=== PATIENT | female | born 1985 | race African-American/Black ===

== ENCOUNTER 2016-06-30 10:24 | Observation (INO) | payer OTHER ==
[2016-06-30 10:48] VITALS: BMI 29.9
[2016-06-30] MEDS ORDERED: FAMOTIDINE 20 MG/50 ML IVPB 50 ML IVPB ONE ×3 (10:49→19:55)
[2016-06-30] MEDS ORDERED: ACETAMINOPHEN 1000 MG/100 ML VIAL (NON FORMULARY) IVPB ONE (10:50)
[2016-06-30] MEDS ORDERED: ONDANSETRON 4 MG/2 ML VIAL IVPB ONE (10:50)
--- NOTE | 2016-06-30 10:57 | PDOC ---
History of Present Illness - General Chief Complaint: Pain Stated Complaint: ABD PAIN Time Seen by Provider: 06/30/16 10:30 - History of Present Illness Initial Comments: 06/30/16 10:52 31-year-old female with a past medical history of PCOS, and a lap band done in 2011 She also has a history of 2 prior C-sections, and kidney stones LMP 06/12 Patient is complaining of one month of intermittent it mid abdominal pain She states that her lap band was last loosened 4 months ago She describes the abdominal pain is intermittent, and associated with nausea and vomiting She is also having a lot of reflux and burning up into her chest and throat, and sometimes spits up some vomitus and some brown material She states in the past week she's been vomiting frequently after eating She states that liquids seem to be okay, but solids are more problematic She states she is having normal brown soft stool She denies any fevers or chills She denies any urinary symptoms She denies any vaginal discharge She states the pain got worse and she's been vomiting most of the day today, prompting her to come to the emergency department Past History - Past Medical History Allergies/Adverse Reactions: Allergies Allergy/AdvReac Type Severity Reaction Status Date / Time No Known Drug Allergies Allergy Verified 06/30/16 10:26 Home Medications: Ambulatory Orders Omeprazole 20 mg PO DAILY #30 capsule. 06/30/16 Oxycodone HCl [Oxaydo] 5 mg PO QID PRN #12 tablet.orl MDD 4 tabs 06/30/16 Asthma: No Cancer: No Cardiac Disorders: No Diabetes: No HTN: No Kidney Stones: Yes Seizures: No Thyroid Disease: No - Surgical History Abdominal Surgery: Yes (LAP BAND 2011, TIGHTENING 09/08/14) - Reproductive History Is Patient Now?: No - Psycho/Social/Smoking Cessation Hx Anxiety: No Suicidal Ideation: No Smoking History: Never smoked Have you smoked in the past 12 months: No Hx Alcohol Use: Yes (occasional) Drug/Substance Use Hx: No Substance Use Type: None Hx Substance Use Treatment: No *Physical Exam - Vital Signs Last Vital Signs Temp Pulse Resp BP Pulse Ox 99 F 91 H 18 112/80 100 06/30/16 10:25 06/30/16 10:25 06/30/16 10:25 06/30/16 10:25 06/30/16 10:25 - Physical Exam Comments: 06/30/16 10:54 Physical exam Last Vital Signs Temp Pulse Resp BP Pulse Ox 99 F 91 H 18 112/80 100 06/30/16 10:25 06/30/16 10:25 06/30/16 10:25 06/30/16 10:25 06/30/16 10:25 GENERAL: The patient is awake, alert, and fully oriented, and in no apparent distress. HEAD: Normal with no signs of trauma. EYES: sclera anicteric, conjunctiva are normal. ENT: Mucous membranes slightly dry NECK: Normal range of motion, supple . LUNGS: Breath sounds equal, clear to auscultation bilaterally. No wheezes, and no crackles. HEART: Regular rate and rhythm, normal S1 and S2 without murmur, rub or gallop. ABDOMEN: The abdomen is soft, with hypoactive but present bowel sounds There is mild periumbilical and upper midepigastric tenderness to palpation without guarding or rebound There is no lower abdominal tenderness or CVA tenderness EXTREMITIES: Normal range of motion, no edema. No clubbing or cyanosis. No cords, erythema, or tenderness. NEUROLOGICAL: Cranial nerves II through XII grossly intact. Normal speech, normal gait. PSYCH: Normal mood, normal affect. SKIN: Warm, Dry, normal turgor, no rashes or lesions noted. ED Treatment Course - LABORATORY CBC & Chemistry Diagram: 06/30/16 11:05 06/30/16 11:45 Medical Decision Making - Medical Decision Making 06/30/16 10:56 Concerned about a gastric ulcer above the band, or any issue with the band Pt is mildly dehydrated Will start with hydration, nausea control, pain control, and an H2 cuauhtemoc Case d/w Dr Mason concerned about band dysfunction or above Will place in observation - Dr Mason will re-evaluate and do barium swallow to check band position/function, and stomach 06/30/16 12:40 Laboratory Results - last 24 hr 06/30/16 06/30/16 06/30/16 11:05 11:05 11:05 WBC 5.0 RBC 4.90 Hgb 12.8 Hct 39.7 MCV 81.1 MCHC 32.2 RDW 13.1 Plt Count 349 MPV 8.8 Sodium Cancelled Potassium Cancelled Chloride Cancelled Carbon Dioxide Cancelled Anion Gap Cancelled BUN Cancelled Creatinine Cancelled Creat Clearance w eGFR Cancelled Random Glucose Cancelled Calcium Cancelled Magnesium Cancelled Total Bilirubin Cancelled AST Cancelled ALT Cancelled Alkaline Phosphatase Cancelled Total Protein Cancelled Albumin Cancelled Lipase Cancelled Urine Color Yellow Urine Appearance Clear Urine pH 7.5 Ur Specific [place] 1.020 Urine Protein Negative Urine Glucose (UA) Negative Urine Ketones Negative Urine Blood Trace H Urine Nitrite Negative Urine Bilirubin Negative Urine Urobilinogen 0.2 e.u/dl Ur Leukocyte Esterase Negative Urine HCG, Qual 06/30/16 06/30/16 11:05 11:45 WBC RBC Hgb Hct MCV MCHC RDW Plt Count MPV Sodium 137 Potassium 4.2 Chloride 108 H Carbon Dioxide 27 D Anion Gap 2 L BUN 10 Creatinine 0.6 Creat Clearance w eGFR > 60 Random Glucose 94 D Calcium 8.7 Magnesium 1.9 Total Bilirubin 0.8 D AST 11 D ALT < 9 L D Alkaline Phosphatase 53 Total Protein 6.3 L Albumin 3.6 Lipase 26 Urine Color Urine Appearance Urine pH Ur Specific [place] Urine Protein Urine Glucose (UA) Urine Ketones Urine Blood Urine Nitrite Urine Bilirubin Urine Urobilinogen Ur Leukocyte Esterase Urine HCG, Qual Negative admit/observation with Dr Mason for further evaluation *DC/Admit/Observation/Transfer Diagnosis at time of Disposition: Nausea & vomiting, GERD (gastroesophageal reflux disease), Dehydration, LAP- BAND surgery status - Discharge Dispostion Condition at time of disposition: Good Admit: Yes - Prescriptions
[2016-06-30] MEDS ORDERED: SODIUM CHLORIDE 1,000 ML IV SCH (11:00)
[2016-06-30] MEDS ORDERED: ONDANSETRON 4 MG/2 ML VIAL ONE (11:01)
[2016-06-30] MEDS ORDERED: ACETAMINOPHEN INJECTION 100 ML IVPB ONE (11:01)
[2016-06-30 11:24] LABS: MCH 26.1 pg (25.7-33.7); MCHC 32.2 g/dl (32.0-36.0); MEAN CELL VOLUME 81.1 fl (80-96); MEAN PLT VOLUME 8.8 fl (7.5-11.1); PLATELET COUNT 349 K/MM3 (134-434); RDW 13.1 % (11.6-15.6)
[2016-06-30] MEDS ORDERED: HYDROmorphone HCL CARPU-JECT 2 MG/1 ML DISP.SYRIN ONE (11:30)
[2016-06-30] MEDS ORDERED: HYDROmorphone HCL CARPU-JECT 1 MG/1 ML DISP.SYRIN IVPUSH ONE (11:32)
[2016-06-30 11:35] LABS: PH,URINE 7.5 (4.5-8); URINE APPEARANCE Clear; URINE BILIRUBIN Negative (NEGATIVE); URINE GLUCOSE (UA) Negative (NEGATIVE); URINE KETONE Negative (NEGATIVE); URINE LEUK ESTERASE Negative (NEGATIVE); URINE NITRITE Negative (NEGATIVE); URINE PROTEIN Negative (NEGATIVE); URINE UROBILINOGEN 0.2 E.U/dl (0.2-1.0)
[2016-06-30 12:23] LABS: ALBUMIN 3.6 g/dl (3.5-5.0); ALK PHOS 53 U/L (32-92); ANION GAP 2 (8-16); BILIRUBIN,TOTAL 0.8 mg/dl (0.2-1.0); CALCIUM 8.7 mg/dl (8.4-10.2); CO2 27 mmol/L (22-28); CREATININE 0.6 mg/dl (0.6-1.3); GLUCOSE,RANDOM 94 mg/dl (74-106); MAGNESIUM 1.9 mg/dL (1.8-2.4); SGOT/AST 11 U/L (10-42); TOT PROT 6.3 g/dl (6.4-8.3)
[2016-06-30 12:29] LABS: SGPT/ALT < 9 U/L (10-40)
[2016-06-30 12:38] LABS: URINE BLOOD TRACE (NEGATIVE); URINE COLOR YELLOW
[2016-06-30 14:16] VITALS: BP 117/57; PULSE 66; TEMP 98.5
[2016-06-30 15:39] LABS: URINE BACTERIA 1+ /hpf (NEGATIVE); URINE WBC 0-3 (3-5)
== END 2016-06-30 22:24 | disposition home or self-care (01) ==
LOC: FER 10:24 → FM/S 13:23
PROVIDERS: ADMIT Surgery; ATTEND Surgery
DX: R11.2 Nausea with vomiting, unspecified (principal); K21.9 Gastro-esophageal reflux disease without esophagitis; E86.0 Dehydration; Z98.84 Bariatric surgery status
CPT/HCPCS: 36415; 74241-TC; 80053; 81003; 81015; 83690; 83735; 84703; 85027; 99285-25; G0378

== ENCOUNTER 2017-01-22 06:26 | Emergency (ER) | payer OTHER ==
[2017-01-22 07:05] VITALS: BMI 32.9
[2017-01-22] MEDS ORDERED: SODIUM CHLORIDE 1,000 ML IV STA ×2 (07:22→11:52)
[2017-01-22] MEDS ORDERED: KETOROLAC TROMETHAMINE 30 MG/1 ML VIAL IVPUSH ONE (07:22)
[2017-01-22] MEDS ORDERED: ONDANSETRON 4 MG/2 ML VIAL IVPUSH ONE (07:31)
--- NOTE | 2017-01-22 07:31 | PDOC ---
History of Present Illness - General History Source: Patient - History of Present Illness Timing/Duration: reports: getting worse Quality: reports: moderate Abdominal Pain Onset Location: reports: flank Pain Radiation: reports: groin <Urvashi Valencia - Last Filed: 01/22/17 15:00> <Anisha Sheets - Last Filed: 01/22/17 16:34> - General Chief Complaint: Pain, Acute Stated Complaint: SIDE/BACK PAIN Time Seen by Provider: 01/22/17 07:14 Past History - Past Medical History Asthma: No Cancer: No Cardiac Disorders: No Diabetes: No HTN: No Kidney Stones: Yes Seizures: No Thyroid Disease: No - Surgical History Abdominal Surgery: Yes (LAP BAND 2011, TIGHTENING 09/08/14) - Suicide/Smoking/Psychosocial Hx Smoking History: Never smoked Have you smoked in the past 12 months: No Information on smoking cessation initiated: No Hx Alcohol Use: No Drug/Substance Use Hx: No Substance Use Type: None Hx Substance Use Treatment: No <Urvashi Valencia - Last Filed: 01/22/17 15:00> <Anisha Sheets - Last Filed: 01/22/17 16:34> - Past Medical History Allergies/Adverse Reactions: Allergies Allergy/AdvReac Type Severity Reaction Status Date / Time No Known Drug Allergies Allergy Verified 01/22/17 06:55 Home Medications: Ambulatory Orders Oxycodone HCl/Acetaminophen [Percocet 5-325 mg Tablet] 1 tab PO Q4H #15 tablet MDD 6 tabs 01/22/17 Review of Systems - Review of Systems Constitutional: No: Chills, Fever ABD/GI: Yes: Nausea. No: Vomiting : Yes: Flank Pain. No: Dysuria, Hematuria <Urvashi Valencia - Last Filed: 01/22/17 15:00> *Physical Exam - Vital Signs Last Vital Signs Temp Pulse Resp BP Pulse Ox 98.5 F 59 L 14 117/53 100 01/22/17 06:55 01/22/17 06:55 01/22/17 06:55 01/22/17 06:55 01/22/17 06:55 - Physical Exam General Appearance: Yes: Appropriately Dressed, Mild Distress HEENT: positive: Normal Voice Neck: positive: Supple Respiratory/Chest: negative: Respiratory Distress Gastrointestinal/Abdominal: positive: Tender, Soft Musculoskeletal: negative: CVA Tenderness Extremity: positive: Normal Inspection Integumentary: positive: Dry, Warm Neurologic: positive: Fully Oriented, Alert, Normal Mood/Affect <Miesha ValenciaFatmataKhalida - Last Filed: 01/22/17 15:00> - Vital Signs Last Vital Signs Temp Pulse Resp BP Pulse Ox 98.6 F 78 18 122/77 98 01/22/17 15:07 01/22/17 15:07 01/22/17 15:07 01/22/17 15:07 01/22/17 15:07 <Anisha Sheets - Last Filed: 01/22/17 16:34> ED Treatment Course - LABORATORY CBC & Chemistry Diagram: 01/22/17 07:28 01/22/17 07:28 <Miesha ValenciaKrystle - Last Filed: 01/22/17 15:00> - LABORATORY CBC & Chemistry Diagram: 01/22/17 07:28 01/22/17 07:28 - ADDITIONAL ORDERS Additional order review: Laboratory Results 01/22/17 01/22/17 01/22/17 12:00 08:35 07:28 Sodium 143 Potassium 4.4 Chloride 107 Carbon Dioxide 31 D Anion Gap 5 L BUN 10 D Creatinine 0.6 Creat Clearance w eGFR > 60 Random Glucose 88 Calcium 9.1 Total Bilirubin 0.6 AST 20 ALT 19 Alkaline Phosphatase 77 Total Protein 6.8 Albumin 3.6 Serum , Qual Negative Urine Color Yellow Urine Appearance Slcloudy Urine pH 6.0 Urine Protein Negative Urine Glucose (UA) Negative Urine Ketones Trace H Urine Blood Negative Urine Nitrite Negative Urine Bilirubin Negative Urine Urobilinogen Negative 01/22/17 07:28 RBC 4.76 D MCV 81.6 MCHC 32.0 RDW 13.7 MPV 8.0 Neutrophils % 47.8 D Lymphocytes % 41.6 H D Monocytes % 7.9 Eosinophils % 1.8 Basophils % 0.9 - Medications Given in the ED: ED Medications Discontinued Medications Generic Name Dose Route Start Last Admin Trade Name Freq PRN Reason Stop Dose Admin Hydromorphone HCl 1 mg 01/22/17 13:43 01/22/17 14:14 Dilaudid Injection - IVPB 01/22/17 13:44 Not Given ONCE ONE Sodium Chloride 1,000 mls @ 1,000 mls/hr 01/22/17 07:22 01/22/17 07:40 Normal Saline - IV 01/22/17 08:21 1,000 mls/hr ASDIR STA Administration Ceftriaxone Sodium 1 gm/ 50 mls @ 100 mls/hr 01/22/17 11:52 01/22/17 12:14 Dextrose IVPB 01/22/17 12:21 100 mls/hr ONCE ONE Administration Sodium Chloride 1,000 mls @ 1,000 mls/hr 01/22/17 11:52 01/22/17 12:00 Normal Saline - IV 01/22/17 12:51 1,000 mls/hr ASDIR STA Administration Ketorolac Tromethamine 30 mg 01/22/17 07:22 01/22/17 07:40 Toradol Injection - IVPUSH 01/22/17 07:23 30 mg ONCE ONE Administration Metoclopramide HCl 10 mg 01/22/17 11:52 01/22/17 12:00 Reglan Injection - IVPB 01/22/17 11:53 10 mg ONCE ONE Administration Morphine Sulfate 4 mg 01/22/17 08:04 01/22/17 08:25 Morphine Injection - IVPUSH 01/22/17 08:05 4 mg ONCE ONE Administration Morphine Sulfate 4 mg 01/22/17 11:56 01/22/17 12:00 Morphine Injection - IVPUSH 01/22/17 11:57 4 mg ONCE ONE Administration Ondansetron HCl 4 mg 01/22/17 07:31 01/22/17 07:40 Zofran Injection IVPUSH 01/22/17 07:32 4 mg ONCE ONE Administration Phenazopyridine HCl 200 mg 01/22/17 11:21 01/22/17 11:20 Pyridium - PO 01/22/17 11:22 200 mg ONCE ONE Administration Tramadol HCl 50 mg 01/22/17 13:47 01/22/17 13:58 Ultram - PO 01/22/17 13:48 50 mg ONCE ONE Administration <Anisha Sheets - Last Filed: 01/22/17 16:34> Medical Decision Making - Medical Decision Making 01/22/17 07:26 31-year-old female status post gastric banding remotely, renal stones, here with worsening right flank pain x several weeks, associated with nausea now. No vomiting, dysuria, hematuria, vaginal discharge, fever or chills. Patient states she was seen by Dr. Nikos York for pain [address] days ago and had [address] which shows bilateral renal stones. Of note, CT reviewed by myself now and shows bilateral non-obstructing kidney stones measuring up to 3 mm w/ no ureteral or bladder stone. Pt states she is scheduled for ? lithotripsy end of the month. Patient states she also had a ? cystoscopy performed and told she had a " bladder infection" and given prescription for antibiotics but has not started meds as of yet. See exam Renal colic CT 2 days ago w/ b/l non-obs renal stones, no stone seen in ureter Dx w/ UTI but hasn't taken abx yet (no recent ua/cx on records here) Stable in ED but haven mildly uncomfortable w/ minimal ttp to R flank without overt CVAT -toradol -zofran -IVF -CT vs US in ED -will discuss dispo w/ Dr York, pt's 01/22/17 09:50 Case d/w Dr York, states if CT shows any hydro, admit pt, otherwise pt can f/ u with tomorrow 01/22/17 09:51 01/22/17 11:21 CT today unchanged and read as bilateral non-obstructing renal stones with no stones in ureter. Patient continues of severe flank pain despite receiving dose of toradol and c morphine. UA still pending, rule out UTI and possible pyelo. Pt denies any overt dysuria/hematuria 01/22/17 11:52 ED nurse reports that pt is actively vomiting in ED. Reglan and additional IV fluid in progress. UA pending. Will order one dose of ceftriaxone in the meantime 01/22/17 11:56 01/22/17 13:41 Ua w/ no nit, LE to be resulted. Pt continues to c/o pain though at this point unclear as to why degree of pain given small non-obstructing stones on CT with no ureteral stone visualized. Given patient's discomfort and difficulty controlling pain in ED, will admit. Will contact admitting team and admit at this time. 01/22/17 13:54 Pt refusing admission at this time. Will attempt to control pain w/ po meds and reassess. If able to discharge, will instruct to fill rx for abx given by Dr York and to f/u with MD tomorrow as was discussed w/ 01/22/17 13:57 01/22/17 14:46 Pt reports some improvement in pain, but states it is still a 6 out of a 10. Patient offered admission but insists that she would prefer to go home. Will dc with Percocet and instruct to fill prescription for antibiotics given to her by Dr. York. Patient to follow up with [facility] in the a.m. Reasons to return discussed with patient 01/22/17 14:50 <Urvashi Valencia - Last Filed: 01/22/17 15:00> *DC/Admit/Observation/Transfer <Urvasih Valencia - Last Filed: 01/22/17 15:00> - Attestations Physician Attestion: I reviewed the case with the mid-level practitioner and agree with the mid- level practitioner's assessment, diagnosis and disposition. <Anisha Sheets - Last Filed: 01/22/17 16:34> Diagnosis at time of Disposition: Flank pain, Renal stones - Discharge Dispostion Disposition: HOME Condition at time of disposition: Improved - Prescriptions Prescriptions: Oxycodone HCl/Acetaminophen [Percocet 5-325 mg Tablet] 1 tab PO Q4H #15 tablet MDD 6 tabs - Patient Instructions Printed Discharge Instructions: DI for Kidney Stones Additional Instructions: Take antibiotics and pain medication as prescribed and follow-up with Dr. York tomorrow
[2017-01-22] MEDS ORDERED: ONDANSETRON 4 MG/2 ML VIAL ONE (07:32)
[2017-01-22] MEDS ORDERED: KETOROLAC TROMETHAMINE 30 MG/1 ML VIAL ONE (07:32)
[2017-01-22 07:48] LABS: BASOPHIL 0.9 % (0-2.0); EOSINOPHIL 1.8 % (0-4.5); MCH 26.1 pg (25.7-33.7); MEAN CELL VOLUME 81.6 fl (80-96); NEUTROPHILS 47.8 % (42.8-82.8); PLATELET COUNT 237 K/MM3 (134-434); RDW 13.7 % (11.6-15.6); WHITE BLOOD COUNT 4.3 K/mm3 (4.0-10.0)
[2017-01-22] MEDS ORDERED: morphine CARPU-JECT 4 MG/1 ML DISP.SYRIN IVPUSH ONE ×2 (08:04→11:56)
[2017-01-22] MEDS ORDERED: morphine CARPU-JECT 10 MG/1 ML DISP.SYRIN ONE (08:21)
[2017-01-22 08:31] LABS: ALBUMIN 3.6 g/dl (3.4-5.0); ANION GAP 5 (8-16); BILIRUBIN,TOTAL 0.6 mg/dL (0.2-1.0); CALCIUM 9.1 mg/dL (8.5-10.1); CO2 31 mmol/L (21-32); CREATININE 0.6 mg/dL (0.55-1.02); GLUCOSE,RANDOM 88 mg/dL (74-106); SGOT/AST 20 U/L (15-37); SGPT/ALT 19 U/L (12-78)
[2017-01-22 08:32] LABS: ALK PHOS 77 U/L (45-117); TOT PROT 6.8 g/dl (6.4-8.2)
[2017-01-22] MEDS ORDERED: PHENAZOPYRIDINE HCL 100 MG TABLET (FP) ONE (11:21)
[2017-01-22] MEDS ORDERED: PHENAZOPYRIDINE HCL 100 MG TABLET (FP) PO ONE (11:21)
[2017-01-22] MEDS ORDERED: CEFTRIAXONE 1 GM in DEXTROSE 5%-WATER - 50 ML IVPB ONE (11:52)
[2017-01-22] MEDS ORDERED: METOCLOPRAMIDE HCL INJECTION 10 MG/2 ML VIAL IVPB ONE (11:52)
[2017-01-22] MEDS ORDERED: METOCLOPRAMIDE HCL INJECTION 10 MG/2 ML VIAL ONE (12:02)
[2017-01-22] MEDS ORDERED: morphine CARPU-JECT 2 MG/1 ML DISP.SYRIN ONE (12:02)
[2017-01-22] MEDS ORDERED: CEFTRIAXONE 50 ML ONE (12:02)
[2017-01-22 12:13] LABS: URINE APPEARANCE SLCLOUDY; URINE BILIRUBIN NEGATIVE (NEGATIVE); URINE BLOOD NEGATIVE (NEGATIVE); URINE COLOR YELLOW; URINE GLUCOSE (UA) NEGATIVE (NEGATIVE); URINE KETONE TRACE (NEGATIVE); URINE NITRITE NEGATIVE (NEGATIVE); URINE PROTEIN NEGATIVE (NEGATIVE); URINE UROBILINOGEN NEGATIVE mg/dL (0.2-1.0)
[2017-01-22] MEDS ORDERED: HYDROmorphone HCL CARPU-JECT 2 MG/1 ML DISP.SYRIN IVPB ONE (13:43)
[2017-01-22] MEDS ORDERED: traMADol HCL 50 MG TABLET PO ONE (13:47)
[2017-01-22] MEDS ORDERED: traMADol HCL 50 MG TABLET ONE (13:56)
[2017-01-22 15:07] VITALS: BP 122/77; PULSE 78; TEMP 98.6
[2017-01-22 16:42] LABS: URINE LEUK ESTERASE Negative (NEGATIVE)
== END 2017-01-22 15:05 | disposition home or self-care (01) ==
LOC: JER 06:26
PROC: 3E03329 Introduction of Other Anti-infective into Peripheral Vein, Percutaneous Approach (ICD-10-PCS; principal; 2017-01-22)
PROC: 3E033NZ Introduction of Analgesics, Hypnotics, Sedatives into Peripheral Vein, Percutaneous Approach (ICD-10-PCS; 2017-01-22)
PROC: 3E0333Z Introduction of Anti-inflammatory into Peripheral Vein, Percutaneous Approach (ICD-10-PCS; 2017-01-22)
PROC: 3E033GC Introduction of Other Therapeutic Substance into Peripheral Vein, Percutaneous Approach (ICD-10-PCS; 2017-01-22)
PROC: 3E0337Z Introduction of Electrolytic and Water Balance Substance into Peripheral Vein, Percutaneous Approach (ICD-10-PCS; 2017-01-22)
DX: N20.0 Calculus of kidney (principal); R10.30 Lower abdominal pain, unspecified; Z98.84 Bariatric surgery status
CPT/HCPCS: 36415; 74176-TC; 80053; 81003; 84703; 85025; 87086; 99281-25

== ENCOUNTER 2017-03-26 19:14 | Observation (INO) | payer OTHER ==
--- NOTE | 2017-03-26 19:33 | PDOC ---
History of Present Illness - History of Present Illness Initial Comments: 03/26/17 20:16 Patient is a 31 year old female with a significant past medical history of s/p lap band in 2010 who presents to the ED with complaints of chest pain that began 2 days ago. Patient reports experiencing bloody vomit 2 days ago, which she states prompted her to see surgeon for evaluation on her lap band. Patient states the lap band was loosened which relieved the burning chest pain and any nausea/vomiting. She reports coming into ED for further evaluation after waking up this morning with returned intense burning chest pain. Patient reports taking pepsin and dexilant with no relief. She reports her appetite is unchanging. Denies SOB. Denies fever, chills. Denies contact with sick individuals, out of state travel. Denies trauma to affected area. Denies any other symptoms Allergies: None Social history: Current smoker (1 cigarette per day). Social drinker. No illicit drugs. Surgical history: Lap Band surgery 2011, 2 prior C-sections. PMD: None Other: Dr. Mason <Guy Choi - Last Filed: 03/26/17 21:06> - General History Source: Patient Exam Limitations: No Limitations - History of Present Illness Initial Comments: A portion of this note was documented by scribe services under my direction. I have reviewed the details of the note, within reason, and agree with the documentation. The case summary and management plan written by me. Medical decision making: This is a 31-year-old female who is status post lap band who comes in complaining of burning epigastric/substernal chest pain. Patient had her lap band loosened 2 days ago. But still has persistent pain. History is concerning for slipped lap band. Will initiate workup including CBC, lipase, metabolic profile. CAT scan abdomen and pelvis to rule out slipped lap band and other pathology. Will hydrate patient with IV fluid and control her pain with IV medication Pepcid, Zofran, morphine 21:30 reevaluation patient complaining that her pain has returned will re- medicate with morphine and continue IV fluids. Patient's lab work reviewed and is unremarkable. Patient CT is pending. 23:00 CT shows a lap band that appears to be unchanged in position from prior studies. However in addition to that there is a 5 by 3.7 X 2.3 retroperitoneum and nail structure of unknown origin. Assessment and plan: This is a morbidly obese 31-year-old female who is approximately 6 years status post lap band procedure. Patient had her lap and recently loosened and continued to have persistent pain. Patient had a workup and evaluation to rule out slipped lap band which revealed a lap band that was most likely not slipped however there is an additional finding of some sort of structure in the retroperitoneal area that needs to be evaluated. Patient will be admitted to the hospitalist services and Dr. Mason will consult. Discussed case with Dr. Mason. <Woodrow Queen I - Last Filed: 03/26/17 23:51> - General Chief Complaint: Pain, Acute Stated Complaint: abd, epigastric pain Time Seen by Provider: 03/26/17 19:17 Past History <Guy Choi - Last Filed: 03/26/17 21:06> - Past Medical History Asthma: No Cancer: No Cardiac Disorders: No COPD: No Diabetes: No HTN: No Kidney Stones: Yes Seizures: No Thyroid Disease: No - Surgical History Abdominal Surgery: Yes (LAP BAND 2011, TIGHTENING 09/08/14) - Suicide/Smoking/Psychosocial Hx Smoking History: Current some day smoker Have you smoked in the past 12 months: No Number of Cigarettes Smoked Daily: 1 Information on smoking cessation initiated: Yes Hx Alcohol Use: Yes Drug/Substance Use Hx: No Substance Use Type: Alcohol Hx Substance Use Treatment: No <Woodrow Queen I - Last Filed: 03/26/17 23:51> - Past Medical History Allergies/Adverse Reactions: Allergies Allergy/AdvReac Type Severity Reaction Status Date / Time No Known Drug Allergies Allergy Verified 03/26/17 19:15 Home Medications: Ambulatory Orders NK [No Known Home Medication] 03/26/17 Review of Systems - Review of Systems Able to Perform ROS?: Yes Comments:: 03/26/17 20:16 General: No fevers or chills, no weakness, no weight loss HEENT: No change in vision. No sore throat, No ear pain CardioVascular: +Chest pain. No shortness of breath Respiratory:No cough, or wheezing. Gastrointestinal: +Hematemesis. No nausea, diarrhea or constipation, No rectal bleeding Genitourinary: No dysuria, hematuria, or frequency Musculoskeletal: No joint or muscle pain or swelling Neurologic: No headache, vertigo, dizziness or loss of consciousness Psychiatric: nor depression Skin: No rashes or easy bruising Endocrine: no increased thirst or abnormal weight change Allergic: no skin or latex allergy All other systems reviewed and normal All Other Systems: Reviewed and Negative <Guy Choi - Last Filed: 03/26/17 21:06> *Physical Exam - Vital Signs Last Vital Signs Temp Pulse Resp BP Pulse Ox 99.4 F 93 H 17 124/77 100 03/26/17 19:15 03/26/17 19:15 03/26/17 19:15 03/26/17 19:15 03/26/17 19:15 - Physical Exam Comments: 03/26/17 20:16 General: +Mild distress. Well-nourished well-developed individual. HEENT: Throat: Normal, tonsils normal, no erythema or exudate Neck: Supple, no meningeal signs, no lymphadenopathy Eyes::Pupils equal reactive and round, extraocular motion intact Chest: Nontender to palpation Cardiac: S1-S2 normal, regular rate and rhythm, no murmurs rubs or gallops Respiratory: Lungs clear to auscultation bilateral Abdomen: Soft, nondistended, normal bowel sounds, nontender to palpation diffusely Rectal: Non tender. Brown stool. Extremities: Warm, dry, no cyanosis, clubbing, or edema Skin: No rashes Neuro: Alert and oriented x3, nonfocal exam, grossly intact, normal gait Psych: Normal mood and affect <Guy Choi - Last Filed: 03/26/17 21:06> - Vital Signs Last Vital Signs Temp Pulse Resp BP Pulse Ox 99.4 F 93 H 17 124/77 100 03/26/17 19:15 03/26/17 19:15 03/26/17 19:15 03/26/17 19:15 03/26/17 19:15 <Woodrow Queen I - Last Filed: 03/26/17 23:51> Heart Score/ECG Review - ECG Intrepretation Comment:: 03/26/17 21:06 Normal sinus rhythm with sinus arrhythmia Normal ECG <Guy Choi - Last Filed: 03/26/17 21:06> ED Treatment Course - LABORATORY CBC & Chemistry Diagram: 03/26/17 20:10 03/26/17 20:10 <Guy Choi - Last Filed: 03/26/17 21:06> - LABORATORY CBC & Chemistry Diagram: 03/26/17 20:10 03/26/17 20:10 <Woodrow Queen I - Last Filed: 03/26/17 23:51> *DC/Admit/Observation/Transfer - Attestations Scribe Attestion: 03/26/17 20:17 Documentation prepared by Guy Choi, acting as medical affairs leader for Woodrow Queen MD/DO. <Guy Choi - Last Filed: 03/26/17 21:06> - Discharge Dispostion Admit: Yes <Woodrow Queen I - Last Filed: 03/26/17 23:51> Diagnosis at time of Disposition: Substernal chest pain Abdominal pain Qualifiers: Abdominal location: generalized Qualified Code(s): R10.84 - Generalized abdominal pain - Discharge Dispostion Disposition: HOME Condition at time of disposition: Stable
[2017-03-26] MEDS ORDERED: SODIUM CHLORIDE 1,000 ML IV ONE (19:44)
[2017-03-26] MEDS ORDERED: FAMOTIDINE 20 MG/50 ML IVPB 20 MG/50 ML MG IVPB ONE (19:55)
[2017-03-26] MEDS ORDERED: HYOSCYAMINE SULFATE 0.125 MG *ODT PO ONE (20:03)
[2017-03-26] MEDS ORDERED: FAMOTIDINE IV 20 MG/12 ML VIAL IVPUSH SCH ×2 (20:15→22:00)
[2017-03-26] MEDS ORDERED: HYOSCYAMINE SULFATE 0.125 MG *ODT ONE (20:15)
[2017-03-26] MEDS ORDERED: FAMOTIDINE IV 20 MG/12 ML VIAL IVPB ONE (20:18)
[2017-03-26 20:27] LABS: BASO % 3.3 % (0-2.0); EOS % 3.8 % (0-4.5); MCH 27.5 pg (25.7-33.7); MCHC 33.4 g/dl (32.0-36.0); MEAN CELL VOLUME 82.2 fl (80-96); MEAN PLT VOLUME 8.6 fl (7.5-11.1); PLATELET COUNT 298 K/MM3 (134-434); RDW 13.3 % (11.6-15.6); WHITE BLOOD COUNT 5.8 K/mm3 (4.0-10.8)
[2017-03-26 20:34] LABS: ALK PHOS 58 U/L (32-92); ANION GAP 7 (8-16); BILIRUBIN,TOTAL 0.5 mg/dl (0.2-1.0); CO2 29 mmol/L (22-28); CREATININE 0.8 mg/dl (0.6-1.3); GLUCOSE,RANDOM 87 mg/dl (74-106); SGOT/AST 21 U/L (10-42); SGPT/ALT 11 U/L (10-40); TOT PROT 6.8 g/dl (6.4-8.3)
[2017-03-26 20:34] LABS: CPK 204 IU/L (26-192)
[2017-03-26 20:35] LABS: URINE APPEARANCE Clear; URINE BILIRUBIN Negative (NEGATIVE); URINE BLOOD Negative (NEGATIVE); URINE GLUCOSE (UA) Negative (NEGATIVE); URINE KETONE Trace (NEGATIVE); URINE LEUK ESTERASE Negative (NEGATIVE); URINE NITRITE Negative (NEGATIVE); URINE PROTEIN Negative (NEGATIVE)
[2017-03-26 20:36] LABS: URINE COLOR YELLOW
[2017-03-26] MEDS ORDERED: morphine CARPU-JECT 4 MG/1 ML DISP.SYRIN IVPUSH ONE ×2 (20:39→22:20)
[2017-03-26] MEDS ORDERED: ONDANSETRON 4 MG/2 ML VIAL IVPB ONE (20:39)
[2017-03-26] MEDS ORDERED: ONDANSETRON 4 MG/2 ML VIAL ONE (20:40)
[2017-03-26] MEDS ORDERED: morphine SULFATE 4 MG/ML VIAL ONE ×2 (20:40→22:26)
[2017-03-26 20:49] LABS: TROPONIN I (DFP) < 0.03 ng/ml (0.03-0.50)
--- NOTE | 2017-03-26 23:39 | HP ---
Admitting History and Physical - Admission Chief Complaint: Chest Pain, Epigastric Pain History of Present Illness: This is a 31 y/o young woman with a PMHx of: Severe Obesity s/p Lap Band (2010) . Who presents to the ED with substernal CP and epigastric pain x 1 day. Patient reports the CP as burning, sharp, and stabbing started at rest. Patient reports belching, flatulence, and an episode of hematemesis. Patient reports having her lap band loosened 2 days ago. Patient denies fever, chills, cough, SOB, palpitations, diarrhea, constipation, dysuria. History Source: Patient Limitations to Obtaining History: No Limitations - Past Medical History Renal/: Yes: Renal Calculi ...: No - Past Surgical History Past Surgical History: Yes: (x2), Tonsillectomy (Adenoidectomy) Additional Past Surgical History: Lap Band Left Rotator Cuff - Smoking History Smoking history: Current some day smoker Have you smoked in the past 12 months: No Aproximately how many cigarettes per day: 1 - Alcohol/Substance Use Hx Alcohol Use: Yes History of Substance Use: reports: None - Social History Usual Living Arrangement: Yes: With Significant Other, With Child ADL: Independent 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 History of Recent Travel: No Home Medications - Allergies Allergies/Adverse Reactions: Allergies Allergy/AdvReac Type Severity Reaction Status Date / Time No Known Drug Allergies Allergy Verified 03/26/17 19:15 - Home Medications Home Medications: Ambulatory Orders NK [No Known Home Medication] 03/26/17 Family Disease History - Family Disease History Family History: Unremarkable Review of Systems - Review of Systems Constitutional: reports: Loss of Appetite Eyes: reports: No Symptoms HENT: reports: Throat Pain Neck: reports: No Symptoms Cardiovascular: reports: Chest Pain Respiratory: reports: No Symptoms Gastrointestinal: reports: Abdominal Pain, Indigestion, Vomiting Blood Genitourinary: reports: No Symptoms Breasts: reports: No Symptoms Reported Musculoskeletal: reports: No Symptoms Integumentary: reports: No Symptoms Neurological: reports: No Symptoms Endocrine: reports: No Symptoms Hematology/Lymphatic: reports: No Symptoms Psychiatric: reports: No Symptoms Pain Intensity: 9 Physical Examination Vital Signs: Vital Signs Temperature 99.4 F 03/26/17 19:15 Pulse Rate 93 H 03/26/17 19:15 Respiratory Rate 17 03/26/17 19:15 Blood Pressure 124/77 03/26/17 19:15 O2 Sat by Pulse Oximetry (%) 100 03/26/17 19:15 Constitutional: Yes: Calm, Obese Eyes: Yes: WNL, Conjunctiva Clear, EOM Intact, PERRL HENT: Yes: WNL, Atraumatic, Normocephalic Neck: Yes: WNL, Supple, Trachea Midline Cardiovascular: Yes: WNL, Regular Rate and Rhythm, S1, S2 Respiratory: Yes: WNL, Regular, CTA Bilaterally Gastrointestinal: Yes: Normal Bowel Sounds, Abdomen, Obese, Tenderness, Epigastrium Renal/: Yes: WNL Breast(s): Yes: WNL Musculoskeletal: Yes: WNL Extremities: Yes: WNL Edema: No Peripheral Pulses WNL: Yes Integumentary: Yes: WNL Neurological: Yes: WNL, Alert, Oriented, Cran Nerves II-XII Intact ...Motor Strength: WNL Psychiatric: Yes: WNL, Alert, Oriented Labs: CBC, BMP 03/26/17 20:10 03/26/17 20:10 Laboratory Results - last 24 hr 03/26/17 03/26/17 03/26/17 20:00 20:10 20:10 WBC 5.8 RBC 4.58 Hgb 12.6 Hct 37.6 MCV 82.2 MCH 27.5 MCHC 33.4 RDW 13.3 Plt Count 298 MPV 8.6 Neutrophils % 54.0 Lymphocytes % 32.5 Monocytes % 6.4 Eosinophils % 3.8 D Basophils % 3.3 H Sodium 139 Potassium 4.1 Chloride 103 Carbon Dioxide 29 H Anion Gap 7 L BUN 12 Creatinine 0.8 D Creat Clearance w eGFR > 60 Random Glucose 87 Calcium 9.0 Total Bilirubin 0.5 D AST 21 D ALT 11 D Alkaline Phosphatase 58 Creatine Kinase 204 H Creatine Kinase Index 0.8 CK-MB (CK-2) 1.8 Troponin I < 0.03 L Total Protein 6.8 Albumin 4.0 Lipase 20 L Urine Color Urine Appearance Urine pH Ur Specific [place] Urine Protein Urine Glucose (UA) Urine Ketones Urine Blood Urine Nitrite Urine Bilirubin Urine Urobilinogen Ur Leukocyte Esterase Urine HCG, Qual Stool Occult Blood 03/26/17 03/26/17 03/27/17 20:10 20:28 02:00 WBC RBC Hgb Hct MCV MCH MCHC RDW Plt Count MPV Neutrophils % Lymphocytes % Monocytes % Eosinophils % Basophils % Sodium Potassium Chloride Carbon Dioxide Anion Gap BUN Creatinine Creat Clearance w eGFR Random Glucose Calcium Total Bilirubin AST ALT Alkaline Phosphatase Creatine Kinase Creatine Kinase Index CK-MB (CK-2) Troponin I < 0.02 Total Protein Albumin Lipase Urine Color Yellow Urine Appearance Clear Urine pH 6.0 Ur Specific [place] 1.025 Urine Protein Negative Urine Glucose (UA) Negative Urine Ketones Trace Urine Blood Negative Urine Nitrite Negative Urine Bilirubin Negative Urine Urobilinogen 1.0 Ur Leukocyte Esterase Negative Urine HCG, Qual Negative Stool Occult Blood Negative Imaging - Results Chest X-ray: Report Reviewed Cat Scan: Report Reviewed Other: Image Reviewed Problem List - Problems (1) Abdominal pain Code(s): R10.9 - UNSPECIFIED ABDOMINAL PAIN Qualifiers: Abdominal location: generalized Qualified Code(s): R10.84 - Generalized abdominal pain (2) Substernal chest pain Code(s): R07.2 - PRECORDIAL PAIN (3) Nausea & vomiting Code(s): R11.2 - NAUSEA WITH VOMITING, UNSPECIFIED (4) DVT prophylaxis Code(s): [id number] - Assessment/Plan This is a 31 y/o woman with a PMHx of: Severe Obesity s/p Lap Band. Place in Observation for Intractable Abdominal Pain, Chest Pain Plan: 1. Abdominal Pain - Intractable - s/p Lap Band (2010), and LB adjustment - CTAP- reviewed - Consider GI consult if condition worsens - Appreciate Surgical Consult - Keep NPO - Continue IVF - Morphine Sulfate, Zofran prn - Protonix IV x1- pt received Pepcid without relief - Monitor CVC, BMP 2. Chest Pain - Likely secondary to reflux vs Muscular vs ACS - Serial Enzymes x3, neg x1 - EKG reviewed- NSR no ST or TWI - On exam: CP is reproducible - HEART Score 1 - With risk factors so low, CP is reproducible highly unlikely Cardiac, will not order Echo as this time, but will continue to observe and r/o ACS - Monitor vitals - Monitor CBC, BMP - f/u with Cardiology in outpatient as needed 3. FEN - D51/2NS@75cc/hr - Replete lytes prn - NPO 4. DVT Prophylaxis - OOB - SCDs Code Status: Full Code Dispo: Observation Visit type - Emergency Visit Emergency Visit: Yes ED Registration Date: 03/26/17 Care time: The patient presented to the Emergency Department on the above date and was hospitalized for further evaluation of their emergent condition. - New Patient This patient is new to me today: Yes Date on this admission: 03/26/17 - Critical Care Critical Care patient: No
[2017-03-26] MEDS ORDERED: morphine SULFATE 4 MG/ML VIAL IVPUSH PRN (23:43)
[2017-03-27] MEDS ORDERED: morphine CARPU-JECT 2 MG/1 ML DISP.SYRIN ONE (00:48)
[2017-03-27] MEDS ORDERED: PANTOPRAZOLE SODIUM 40 MG VIAL IVPUSH ONE (01:32)
[2017-03-27] MEDS: DEXTROSE 5%-0.45% SALINE 1,000 ML IV SCH ×2 (02:04→23:55)
[2017-03-27 02:28] VITALS: BMI 34.1
[2017-03-27] MEDS: morphine SULFATE 4 MG/ML VIAL IVPUSH PRN ×4 (03:12→19:39)
--- NOTE | 2017-03-27 07:34 | PN ---
Physical Exam: SUBJECTIVE: Patient seen and examined, reports ongoing epigastric pain. OBJECTIVE: patient is a 31 y/o female, with a past medical history of obesity ( lap band 2010), and . Patient was admitted from the emergency department for emergent condition. Vital Signs Period Temp Pulse Resp BP Sys/Salcedo Pulse Ox Last 24 Hr 98.1 F-99.4 F 67-93 14-20 105-124/53-77 100-100 GENERAL: The patient is awake, alert, and fully oriented, in no acute distress. HEAD: Normal with no signs of trauma. EYES: PERRL, extraocular movements intact, sclera anicteric, conjunctiva clear. No ptosis. ENT: Ears normal, nares patent, oropharynx clear without exudates, moist mucous membranes. NECK: Trachea midline, full range of motion, supple. LUNGS: Breath sounds equal, clear to auscultation bilaterally, no wheezes, no crackles, no accessory muscle use. HEART: Regular rate and rhythm, S1, S2 without murmur, rub or gallop. ABDOMEN: Soft, + epigastric tenderness, nondistended, normoactive bowel sounds , no guarding, no rebound, no hepatosplenomegaly, no masses. EXTREMITIES: 2+ pulses, warm, well-perfused, no edema. NEUROLOGICAL: Cranial nerves II through XII grossly intact. Normal speech, gait not observed. PSYCH: Normal mood, normal affect. SKIN: Warm, dry, normal turgor, no rashes or lesions noted Laboratory Results - last 24 hr 03/26/17 03/26/17 03/26/17 20:00 20:10 20:10 WBC 5.8 RBC 4.58 Hgb 12.6 Hct 37.6 MCV 82.2 MCH 27.5 MCHC 33.4 RDW 13.3 Plt Count 298 MPV 8.6 Neutrophils % 54.0 Lymphocytes % 32.5 Monocytes % 6.4 Eosinophils % 3.8 D Basophils % 3.3 H Sodium 139 Potassium 4.1 Chloride 103 Carbon Dioxide 29 H Anion Gap 7 L BUN 12 Creatinine 0.8 D Creat Clearance w eGFR > 60 Random Glucose 87 Calcium 9.0 Total Bilirubin 0.5 D AST 21 D ALT 11 D Alkaline Phosphatase 58 Creatine Kinase 204 H Creatine Kinase Index 0.8 CK-MB (CK-2) 1.8 Troponin I < 0.03 L Total Protein 6.8 Albumin 4.0 Lipase 20 L Urine Color Urine Appearance Urine pH Ur Specific [place] Urine Protein Urine Glucose (UA) Urine Ketones Urine Blood Urine Nitrite Urine Bilirubin Urine Urobilinogen Ur Leukocyte Esterase Urine HCG, Qual Stool Occult Blood 03/26/17 03/26/17 03/27/17 20:10 20:28 02:00 WBC RBC Hgb Hct MCV MCH MCHC RDW Plt Count MPV Neutrophils % Lymphocytes % Monocytes % Eosinophils % Basophils % Sodium Potassium Chloride Carbon Dioxide Anion Gap BUN Creatinine Creat Clearance w eGFR Random Glucose Calcium Total Bilirubin AST ALT Alkaline Phosphatase Creatine Kinase Creatine Kinase Index CK-MB (CK-2) Troponin I < 0.02 Total Protein Albumin Lipase Urine Color Yellow Urine Appearance Clear Urine pH 6.0 Ur Specific [place] 1.025 Urine Protein Negative Urine Glucose (UA) Negative Urine Ketones Trace Urine Blood Negative Urine Nitrite Negative Urine Bilirubin Negative Urine Urobilinogen 1.0 Ur Leukocyte Esterase Negative Urine HCG, Qual Negative Stool Occult Blood Negative Active Medications Generic Name Dose Route Start Last Admin Trade Name Freq PRN Reason Stop Dose Admin Dextrose/Sodium Chloride 1,000 mls @ 75 mls/hr 03/26/17 23:45 03/27/17 02:04 D5-1/2ns - IV 75 mls/hr ASDIR FORTINO Administration Morphine Sulfate 4 mg 03/27/17 01:36 03/27/17 03:12 Morphine Sulfate IVPUSH 4 mg Q6H PRN Administration PAIN LEVEL 6-[address] of chest abd/pelvis w/contrast: in comparison to ct scan of 01/27, possible interval development of mild concentic wall thickening/edema of gastric funding , and partially imaged lower thoracic fundus. as per radiologist, Dr Pierre ASSESSMENT/PLAN: 1) GI epigastric pain - likely secondary to gastritis, Dr Mason (bariatic surgeon) consulted and bedside - troponin x 2 wnl - continue protonix - case discussed with Dr Dawson, GI, patient is pending EGD today after 1400 - continue NPO with IVF f/e/n - oob - protonix - scd dispo: pt requires observation admission. full code Visit type - Emergency Visit Emergency Visit: Yes ED Registration Date: 03/27/17 Care time: The patient presented to the Emergency Department on the above date and was hospitalized for further evaluation of their emergent condition. - New Patient This patient is new to me today: Yes Date on this admission: 03/28/17 - Critical Care Critical Care patient: No - Discharge Referral Referred to [facility] No
[2017-03-27] MEDS ORDERED: PANTOPRAZOLE SODIUM 40 MG in SODIUM CHLORIDE 100 ML IVPB ONE (08:01)
[2017-03-27 11:36] LABS: BASO % 3.3 % (0-2.0); EOS % 4.1 % (0-4.5); MCH 27.3 pg (25.7-33.7); MCHC 33.2 g/dl (32.0-36.0); MEAN CELL VOLUME 82.1 fl (80-96); MEAN PLT VOLUME 8.6 fl (7.5-11.1); NEUT % 35.8 % (42.8-82.8); PLATELET COUNT 254 K/MM3 (134-434); RDW 13.2 % (11.6-15.6); WHITE BLOOD COUNT 4.3 K/mm3 (4.0-10.8)
[2017-03-27 11:57] LABS: ANION GAP 3 (8-16); CALCIUM 8.6 mg/dl (8.4-10.2); CO2 29 mmol/L (22-28); CREATININE 0.6 mg/dl (0.6-1.3); GLUCOSE,RANDOM 85 mg/dl (74-106)
--- NOTE | 2017-03-27 12:47 | EKG ---
Test Reason : Blood Pressure : / mmHG Vent. Rate : 064 BPM Atrial Rate : 064 BPM P-R Int : 154 ms QRS Dur : 084 ms QT Int : 414 ms P-R-T Axes : 000 008 014 degrees QTc Int : 427 ms POOR DATA QUALITY, INTERPRETATION MAY BE ADVERSELY AFFECTED NORMAL SINUS RHYTHM WITH SINUS ARRHYTHMIA NORMAL ECG NO PREVIOUS ECGS AVAILABLE Confirmed by LIEN REY MD ([id number]) on 03/27/2017 12:47:23 PM Referred By: MD JOHNSON Confirmed By:LIEN REY MD
[2017-03-27] MEDS ORDERED: PROPOFOL 20 ML ONE ×3 (14:23)
[2017-03-27] MEDS ORDERED: LIDOCAINE HCL/PF 2% SDV 5ML VIAL ONE (14:23)
--- NOTE | 2017-03-27 14:23 | CON.GI ---
Consult - History of Present Illness History of Present Illness: Patient is a 31 year old female with a significant past medical history of s/p lap band in 2010 who presents to the ED with complaints of chest pain that began 2 days ago. Patient reports experiencing dark material, possibly blood, vomit 2 days ago, which she states prompted her to see surgeon for evaluation on her lap band. Patient states the lap band was loosened which relieved the burning chest pain and any nausea/vomiting. She reports coming into ED for further evaluation after waking up this morning with returned intense burning chest pain. Patient reports taking pepsid and dexilant with no relief. She reports her appetite is unchanging. No history of EGD in the past. No history of pancreatitis, gallbladder problems. No chronic NSAIDs, ETOH. No melena, hematochezia, hematemesis, jaundice, chills, or fever. No dysphagia, odynophagia , undigested food regurgitation. - Past Medical History Renal/: Yes: Renal Calculi ...LMP: 06/12/16 ...: No Additional Medical History: Obesity - Past Surgical History Past Surgical History: Yes: (x2), Tonsillectomy (Adenoidectomy) - Alcohol/Substance Use Hx Alcohol Use: Yes History of Substance Use: reports: None - Smoking History Smoking history: Current some day smoker Have you smoked in the past 12 months: No Aproximately how many cigarettes per day: 1 - Social History ADL: Independent Occupation: [employer] History of Recent Travel: No Home Medications - Allergies Allergies/Adverse Reactions: Allergies Allergy/AdvReac Type Severity Reaction Status Date / Time No Known Drug Allergies Allergy Verified 03/26/17 19:15 - Home Medications Home Medications: Ambulatory Orders NK [No Known Home Medication] 03/26/17 Family Disease History - Family Disease History Family History: Unremarkable Review of Systems Findings/Remarks: please refer o H&P Physical Exam-GI Vital Signs: Vital Signs Temperature 98.3 F 03/27/17 05:00 Pulse Rate 67 03/27/17 05:00 Respiratory Rate 20 03/27/17 05:00 Blood Pressure 105/53 03/27/17 05:00 O2 Sat by Pulse Oximetry (%) 100 03/27/17 06:14 Constitutional: Yes: No Distress, Calm Eyes: Yes: Conjunctiva Clear HENT: Yes: Atraumatic Neck: Yes: Supple Cardiovascular: Yes: Regular Rate and Rhythm Respiratory: Yes: Regular Gastrointestinal Inspection: No: Ascites, Distention ...Auscultate: Yes: Normoactive Bowel Sounds ...Palpate: Yes: Soft, Tenderness, Epigastium. No: Firm/Rigid, Guarding, Mass, Pulsatile Mass Neurological: Yes: Alert, Oriented Labs: CBC, BMP 03/27/17 11:24 03/27/17 11:24 Laboratory Results - last 24 hr 03/26/17 03/26/17 03/26/17 20:00 20:10 20:10 WBC 5.8 RBC 4.58 Hgb 12.6 Hct 37.6 MCV 82.2 MCH 27.5 MCHC 33.4 RDW 13.3 Plt Count 298 MPV 8.6 Neutrophils % 54.0 Lymphocytes % 32.5 Monocytes % 6.4 Eosinophils % 3.8 D Basophils % 3.3 H Sodium 139 Potassium 4.1 Chloride 103 Carbon Dioxide 29 H Anion Gap 7 L BUN 12 Creatinine 0.8 D Creat Clearance w eGFR > 60 Random Glucose 87 Calcium 9.0 Total Bilirubin 0.5 D AST 21 D ALT 11 D Alkaline Phosphatase 58 Creatine Kinase 204 H Creatine Kinase Index 0.8 CK-MB (CK-2) 1.8 Troponin I < 0.03 L Total Protein 6.8 Albumin 4.0 Lipase 20 L Urine Color Urine Appearance Urine pH Ur Specific [place] Urine Protein Urine Glucose (UA) Urine Ketones Urine Blood Urine Nitrite Urine Bilirubin Urine Urobilinogen Ur Leukocyte Esterase Urine HCG, Qual Stool Occult Blood 03/26/17 03/26/17 03/27/17 20:10 20:28 02:00 WBC RBC Hgb Hct MCV MCH MCHC RDW Plt Count MPV Neutrophils % Lymphocytes % Monocytes % Eosinophils % Basophils % Sodium Potassium Chloride Carbon Dioxide Anion Gap BUN Creatinine Creat Clearance w eGFR Random Glucose Calcium Total Bilirubin AST ALT Alkaline Phosphatase Creatine Kinase Creatine Kinase Index CK-MB (CK-2) Troponin I < 0.02 Total Protein Albumin Lipase Urine Color Yellow Urine Appearance Clear Urine pH 6.0 Ur Specific [place] 1.025 Urine Protein Negative Urine Glucose (UA) Negative Urine Ketones Trace Urine Blood Negative Urine Nitrite Negative Urine Bilirubin Negative Urine Urobilinogen 1.0 Ur Leukocyte Esterase Negative Urine HCG, Qual Negative Stool Occult Blood Negative 03/27/17 03/27/17 03/27/17 11:24 11:24 11:24 WBC 4.3 RBC 4.50 Hgb 12.3 Hct 37.0 MCV 82.1 MCH 27.3 MCHC 33.2 RDW 13.2 Plt Count 254 MPV 8.6 Neutrophils % 35.8 L D Lymphocytes % 48.2 H D Monocytes % 8.6 Eosinophils % 4.1 Basophils % 3.3 H Sodium 137 Potassium 3.6 Chloride 105 Carbon Dioxide 29 H Anion Gap 3 L BUN 8 D Creatinine 0.6 D Creat Clearance w eGFR Random Glucose 85 Calcium 8.6 Total Bilirubin AST ALT Alkaline Phosphatase Creatine Kinase Creatine Kinase Index CK-MB (CK-2) Troponin I < 0.03 L Total Protein Albumin Lipase Urine Color Urine Appearance Urine pH Ur Specific [place] Urine Protein Urine Glucose (UA) Urine Ketones Urine Blood Urine Nitrite Urine Bilirubin Urine Urobilinogen Ur Leukocyte Esterase Urine HCG, Qual Stool Occult Blood Imaging - Results Cat Scan: Report Reviewed Problem List - Problems (1) Abnormal CT of the abdomen Code(s): R93.5 - ABN FINDINGS ON DX IMAGING OF ABD REGIONS, INC RETROPERITON (2) Abdominal pain Code(s): R10.9 - UNSPECIFIED ABDOMINAL PAIN Qualifiers: Abdominal location: generalized Qualified Code(s): R10.84 - Generalized abdominal pain (3) GERD (gastroesophageal reflux disease) Code(s): K21.9 - GASTRO-ESOPHAGEAL REFLUX DISEASE WITHOUT ESOPHAGITIS Assessment/Plan No signs of surgical abdomen, active, or recent bleeding r/o erosive gastritis, esophagitis, gastric ulcer, PUD, ect. PLan EGD today. Discussed with the patient. Agree with PPI and NPO today MRI as OP to follow up on retroperitoneal findings on CT.
--- NOTE | 2017-03-27 15:11 | PROC ---
Endoscopy Procedure Endoscopy procedure completed. Please see scanned procedure report. Severe esophagitis in distal esophagus, biopsies taken, otherwise normal exam. Random biopsies taken form proximal small bowel, antrum and the body. PPI po BID Carafate liquid 1 gm po qid x 7 days Soft diet. cepacol prn GI office in 1-2 weeks (biopsies) discussed with the patient
[2017-03-27] MEDS: BENZOCAINE/MENTH/CETYLPYRD CL 1 EACH LOZENGE MM PRN ×2 (15:17→19:40)
[2017-03-27] MEDS ORDERED: ACETAMINOPHEN/CAFFEINE/BUTALBITAL 1 TAB PO ONE (16:37)
[2017-03-27] MEDS: SUCRALFATE 1 GM/10 ML UNIT DOSE CUPS PO SCH ×3 (18:13→22:07)
[2017-03-27] MEDS ORDERED: ACETAMINOPHEN 325 MG TABLET (FP) PO PRN (19:34)
[2017-03-27] MEDS: PANTOPRAZOLE 40 MG TABLET (FP) PO SCH (22:07)
[2017-03-28] MEDS: morphine SULFATE 4 MG/ML VIAL IVPUSH PRN ×2 (01:20→07:51)
[2017-03-28] MEDS ORDERED: morphine SULFATE 4 MG/ML VIAL IVPB PRN (08:03)
[2017-03-28] MEDS: SUCRALFATE 1 GM/10 ML UNIT DOSE CUPS PO SCH ×2 (08:35→09:53)
--- NOTE | 2017-03-28 08:36 | PN ---
Physical Exam: SUBJECTIVE: Patient seen and examined OBJECTIVE: Vital Signs Period Temp Pulse Resp BP Sys/Salcedo Pulse Ox Last 24 Hr 98.2 F-99.3 F 64-69 18-20 85-120/55-63 98-98 GENERAL: The patient is awake, alert, and fully oriented, in no acute distress. HEAD: Normal with no signs of trauma. EYES: PERRL, extraocular movements intact, sclera anicteric, conjunctiva clear. No ptosis. ENT: Ears normal, nares patent, oropharynx clear without exudates, moist mucous membranes. NECK: Trachea midline, full range of motion, supple. LUNGS: Breath sounds equal, clear to auscultation bilaterally, no wheezes, no crackles, no accessory muscle use. HEART: Regular rate and rhythm, S1, S2 without murmur, rub or gallop. ABDOMEN: Soft, nontender, nondistended, normoactive bowel sounds, no guarding, no rebound, no hepatosplenomegaly, no masses. EXTREMITIES: 2+ pulses, warm, well-perfused, no edema. NEUROLOGICAL: Cranial nerves II through XII grossly intact. Normal speech, gait not observed. PSYCH: Normal mood, normal affect. SKIN: Warm, dry, normal turgor, no rashes or lesions noted Laboratory Results - last 24 hr 03/27/17 03/27/17 03/27/17 11:24 11:24 11:24 WBC 4.3 RBC 4.50 Hgb 12.3 Hct 37.0 MCV 82.1 MCH 27.3 MCHC 33.2 RDW 13.2 Plt Count 254 MPV 8.6 Neutrophils % 35.8 L D Lymphocytes % 48.2 H D Monocytes % 8.6 Eosinophils % 4.1 Basophils % 3.3 H Sodium 137 Potassium 3.6 Chloride 105 Carbon Dioxide 29 H Anion Gap 3 L BUN 8 D Creatinine 0.6 D Random Glucose 85 Calcium 8.6 Troponin I < 0.03 L Active Medications Generic Name Dose Route Start Last Admin Trade Name Freq PRN Reason Stop Dose Admin Acetaminophen 650 mg 03/27/17 19:34 03/27/17 20:09 Tylenol - PO 650 mg Q6H PRN Administration FEVER OR PAIN Benzocaine/Menthol 1 each 03/27/17 15:09 03/27/17 19:40 Cepacol Lozenge - MM 1 each PRN PRN Administration SORE THROAT Dextrose/Sodium Chloride 1,000 mls @ 75 mls/hr 03/26/17 23:45 03/27/17 23:55 D5-1/2ns - IV 75 mls/hr ASDIR FORTINO Administration Morphine Sulfate 4 mg 03/28/17 08:03 Morphine Sulfate IVPB Q6H PRN PAIN LEVEL 6-10 Oxycodone/Acetaminophen 1 combo 03/28/17 08:06 Percocet 5/325 - PO Q4HPO PRN PAIN LEVEL 6-10 Pantoprazole Sodium 40 mg 03/27/17 22:00 03/27/17 22:07 Protonix - PO 40 mg BID FORTINO Administration Sucralfate 1 gm 03/27/17 18:00 03/28/17 08:35 Carafate Oral Suspension - PO 1 gm QID FORTINO Administration ASSESSMENT/PLAN:
[2017-03-28] MEDS: PANTOPRAZOLE 40 MG TABLET (FP) PO SCH (09:54)
[2017-03-28] MEDS ORDERED: PANTOPRAZOLE SODIUM 40 MG VIAL IVPUSH SCH (10:00)
--- NOTE | 2017-03-28 12:07 | CONSULT ---
Consult - text type - Consultation Consultation Note: Pt seen by me 03/27/17 and 03/28/17' Pt 8 years S/P Lap-Band Pt c/o severe heartburn with vomiting for a few days prior to admission CT scan on admission showed no obstruction, dilated proximal fundus and distal esophagus Upper endoscopy showed esophagitis, no other pathology Barium swallow performed today shows band in good position, no dilatation of stomach above the band Barium flows thru band, still slowly with band emptied. Labs- WBC-4.3 H/H- I- Severe Gerd, esophagitis R- Soft, bland diet Begin PPI Avoid Gerd-producing foods, liquids (alcohol, caffeine, chocolate) Will follow in office in 1-2 weeks
--- NOTE | 2017-03-28 12:50 | DS ---
Physical Exam: SUBJECTIVE: Patient seen and examined, tolerating soft diet, denies any abdominal pain OBJECTIVE:Patient is a 31 year old female with a significant past medical history of s/p lap band in 2010 who presents to the ED with complaints of chest pain that began 2 days ago. Patient reports experiencing dark material, possibly blood, vomit 2 days ago, which she states prompted her to see surgeon for evaluation on her lap band. Patient states the lap band was loosened which relieved the burning chest pain and any nausea/vomiting. She reports coming into ED for further evaluation after waking up this morning with returned intense burning chest pain. Patient reports taking pepsid and dexilant with no relief. She reports her appetite is unchanging. No history of EGD in the past. No history of pancreatitis, gallbladder problems. No chronic NSAIDs, ETOH. No melena, hematochezia, hematemesis, jaundice, chills, or fever. No dysphagia, odynophagia, undigested food regurgitation. Vital Signs Period Temp Pulse Resp BP Sys/Salcedo Pulse Ox Last 24 Hr 98.2 F-99.3 F 64-74 18-20 85-120/55-64 98-98 PHYSICAL EXAM GENERAL: The patient is awake, alert, and fully oriented, in no acute distress. HEAD: Normal with no signs of trauma. EYES: PERRL, extraocular movements intact, sclera anicteric, conjunctiva clear. ENT: Ears normal, nares patent, oropharynx clear without exudates, moist mucous membranes. NECK: Trachea midline, full range of motion, supple. LUNGS: Breath sounds equal, clear to auscultation bilaterally, no wheezes, no crackles, no accessory muscle use. HEART: Regular rate and rhythm, S1, S2 without murmur, rub or gallop. ABDOMEN: Soft, nontender, nondistended, normoactive bowel sounds, no guarding, no rebound, no hepatosplenomegaly, no masses. EXTREMITIES: 2+ pulses, warm, well-perfused, no edema. NEUROLOGICAL: Cranial nerves II through XII grossly intact. Normal speech, gait not observed. PSYCH: Normal mood, normal affect. SKIN: Warm, dry, normal turgor, no rashes or lesions noted. LABS CBC WBC 4.3 K/mm3 (4.0-10.8) 03/27/17 11:24 RBC 4.50 M/mm3 (3.60-5.2) 03/27/17 11:24 Hgb 12.3 GM/dl (10.7-15.3) 03/27/17 11:24 Hct 37.0 % (32.4-45.2) 03/27/17 11:24 MCV 82.1 fl (80-96) 03/27/17 11:24 MCH 27.3 pg (25.7-33.7) 03/27/17 11:24 MCHC 33.2 g/dl (32.0-36.0) 03/27/17 11:24 RDW 13.2 % (11.6-15.6) 03/27/17 11:24 Plt Count 254 K/MM3 (134-434) 03/27/17 11:24 MPV 8.6 fl (7.5-11.1) 03/27/17 11:24 Neutrophils % 35.8 % (42.8-82.8) L D 03/27/17 11:24 Lymphocytes % 48.2 % (8-40) H D 03/27/17 11:24 Monocytes % 8.6 % (3.8-10.2) 03/27/17 11:24 Eosinophils % 4.1 % (0-4.5) 03/27/17 11:24 Basophils % 3.3 % (0-2.0) H 03/27/17 11:24 CMP Sodium 137 mmol/L (136-145) 03/27/17 11:24 Potassium 3.6 mmol/L (3.5-5.1) 03/27/17 11:24 Chloride 105 mmol/L (98-107) 03/27/17 11:24 Carbon Dioxide 29 mmol/L (22-28) H 03/27/17 11:24 Anion Gap 3 (8-16) L 03/27/17 11:24 BUN 8 mg/dl (7-18) D 03/27/17 11:24 Creatinine 0.6 mg/dl (0.6-1.3) D 03/27/17 11:24 Creat Clearance w eGFR > 60 (>60) 03/26/17 20:10 Random Glucose 85 mg/dl (74-106) 03/27/17 11:24 Calcium 8.6 mg/dl (8.4-10.2) 03/27/17 11:24 Total Bilirubin 0.5 mg/dl (0.2-1.0) D 03/26/17 20:10 AST 21 U/L (10-42) D 03/26/17 20:10 ALT 11 U/L (10-40) D 03/26/17 20:10 Alkaline Phosphatase 58 U/L (32-92) 03/26/17 20:10 Creatine Kinase 204 IU/L (26-192) H 03/26/17 20:00 Creatine Kinase Index 0.8 % (0.0-5.0) 03/26/17 20:00 CK-MB (CK-2) 1.8 ng/mL (0.3-4.0) 03/26/17 20:00 Troponin I < 0.03 ng/ml (0.03-0.50) L 03/27/17 11:24 Total Protein 6.8 g/dl (6.4-8.3) 03/26/17 20:10 Albumin 4.0 g/dl (3.5-5.0) 03/26/17 20:10 Lipase 20 U/L (22-51) L 03/26/17 20:[address] of chest abd/pelvis w/contrast: in comparison to ct scan of 01/27, possible interval development of mild concentic wall thickening/edema of gastric funding , and partially imaged lower thoracic fundus. as per radiologist, Dr Pierre Modified barium swallow: narrowing of the esophagus at the level of the lap band. HOSPITAL COURSE: Patient was admitted from the emergency department for gastritis. Patient was evaluated by Dr Mason on hospital day 1. EGD performed by Dr Dawson on hospital day 1, severe gastritis was noted. patient was started on protonix 40mg BID and carafate. Troponin x2 wnl. patient is tolerating soft bland diet and ambulatory throughout nursing station. PLAN: - continue ppi and carafate - soft bland diet - follow up with Dr Mason within 2 weeks Date of Admission:03/27/17 Date of Discharge: 03/28/17 Minutes to complete discharge: 45 Discharge Summary Reason For Visit: ABDOMINAL PAIN Current Active Problems Abdominal pain (Acute) Abnormal CT of the abdomen (Acute) DVT prophylaxis (Acute) Substernal chest pain (Acute) Condition: Stable - Instructions - Home Medications Comprehensive Discharge Medication List: Ambulatory Orders NK [No Known Home Medication] 03/26/17 - Discharge Referral Referred to [facility] Med P.C.: No
[2017-03-28] MEDS ORDERED: KETOROLAC TROMETHAMINE 30 MG/1 ML VIAL IVPUSH ONE (13:00)
[2017-03-28] MEDS ORDERED: diphenhydrAMINE HCL 25 MG CAPSULE (FP) PO ONE (14:00)
--- NOTE | 2017-03-28 14:00 | PN ---
Progress Note, Physician History of Present Illness: No acute events. - Current Medication List Current Medications: Active Medications Acetaminophen (Tylenol -) 650 mg PO Q6H PRN PRN Reason: FEVER OR PAIN Last Admin: 03/27/17 20:09 Dose: 650 mg Benzocaine/Menthol (Cepacol Lozenge -) 1 each MM PRN PRN PRN Reason: SORE THROAT Last Admin: 03/27/17 19:40 Dose: 1 each Diphenhydramine HCl (Benadryl -) 25 mg PO ONCE ONE Stop: 03/28/17 14:01 Last Admin: 03/28/17 13:53 Dose: 25 mg Dextrose/Sodium Chloride (D5-1/2ns -) 1,000 mls @ 75 mls/hr IV ASDIR [facility] Last Admin: 03/27/17 23:55 Dose: 75 mls/hr Morphine Sulfate (Morphine Sulfate) 4 mg IVPB Q6H PRN PRN Reason: PAIN LEVEL 6-10 Oxycodone/Acetaminophen (Percocet 5/325 -) 1 combo PO Q4HPO PRN PRN Reason: PAIN LEVEL 6-10 Last Admin: 03/28/17 12:13 Dose: 1 combo Pantoprazole Sodium (Protonix -) 40 mg PO BID [facility] Last Admin: 03/28/17 09:54 Dose: 40 mg Sucralfate (Carafate Oral Suspension -) 1 gm PO QID [facility] Last Admin: 03/28/17 09:53 Dose: Not Given - Objective Vital Signs: Vital Signs Temperature 98.2 F 03/28/17 06:00 Pulse Rate 74 03/28/17 08:43 Respiratory Rate 18 03/28/17 09:00 Blood Pressure 101/64 03/28/17 08:43 O2 Sat by Pulse Oximetry (%) 98 03/28/17 09:00 Constitutional: Yes: No Distress Gastrointestinal: Yes: Soft. No: Tenderness Labs: CBC, BMP 03/27/17 11:24 03/27/17 11:24 Problem List - Problems (1) Abnormal CT of the abdomen Code(s): R93.5 - ABN FINDINGS ON DX IMAGING OF ABD REGIONS, INC RETROPERITON (2) Abdominal pain Code(s): R10.9 - UNSPECIFIED ABDOMINAL PAIN Qualifiers: Abdominal location: generalized Qualified Code(s): R10.84 - Generalized abdominal pain (3) GERD (gastroesophageal reflux disease) Code(s): K21.9 - GASTRO-ESOPHAGEAL REFLUX DISEASE WITHOUT ESOPHAGITIS Assessment/Plan Esophagitis, otherwise negative EGD. Findings were discussed with the patient again. GERD lifestyle and diet discussed Follow as OP in 1-2 weeks for biopsies results
[2017-03-28 14:19] VITALS: BP 110/74; PULSE 75; TEMP 99
--- NOTE | 2017-03-31 14:10 | PATH ---
Surgical Pathology Report Patient Name: YULY GARCIA Med. Rec. #: [id number] /Age/Gender: 1985 (Age: 31) / F Account: [id number] Location: [facility] MED-SURG Taken: 03/27/2017 Received: 03/27/2017 Reported: 03/31/2017 Physicians: Huong Gomez M.D. Specimen(s) Received A: SECOND PORTION OF JEJUNUM B: BX ANTRUM AND BODY C: BX DISTAL ESOPHAGUS Clinical History Preoperative diagnosis: Abdominal pain, GERD Postoperative diagnosis: Esophagitis Final Diagnosis A. DESIGNATED SECOND PORTION OF JEJUNUM, BIOPSY: DUODENAL MUCOSA WITH NO PATHOLOGIC CHANGES. NO HISTOLOGIC EVIDENCE OF GLUTEN SENSITIVE ENTEROPATHY (CELIAC SPRUE) IDENTIFIED. B. STOMACH, ANTRUM AND BODY, BIOPSY: GASTRIC ANTRAL MUCOSAL WITH REACTIVE GASTROPATHY, AND GASTRIC FUNDIC MUCOSA WITH NO PATHOLOGIC CHANGES. NO H. PYLORI IDENTIFIED WITH DIFF-QUIK STAIN. C. DISTAL ESOPHAGUS, BIOPSY: SQUAMOUS EPITHELIUM AND ACUTE INFLAMMATION AND SUPERFICIAL ULCERATION. NO INTESTINAL METAPLASIA IDENTIFIED (NO WEBER'S IDENTIFIED). FUNGAL STAIN (PAS) IS PENDING. Electronically Signed De Johnson M.D. Addendum Reported: 03/31/2017 Addendum Diagnosis Fungal stain (PAS) on Specimen C is negative. De Johnson M.D. Gross Description A. Received in formalin, labeled "second portion of jejunum" are 2 doll, irregular portions of soft tissue measuring 0.4 and 0.6 cm. in greatest dimension. The specimens are submitted in toto in one cassette. B. Received in formalin, labeled "biopsy antrum and body" are 2 doll, irregular portions of soft tissue measuring 0.2 and 0.9 cm. in greatest dimension. The specimens are submitted in toto in one cassette. C. Received in formalin, labeled "distal esophagus" is a doll, irregular portion of soft tissue measuring 0.3 cm. in greatest dimension. The specimen is submitted in toto in one cassette. 03/28/201703/28/2017
== END 2017-03-28 16:25 | disposition home or self-care (01) ==
LOC: FER 19:14 → FM/S 03-27 00:48
PROVIDERS: ADMIT Internal Medicine; ATTEND Nurse Practitioner Family
PROC: 0DB68ZX Excision of Stomach, Via Natural or Artificial Opening Endoscopic, Diagnostic (ICD-10-PCS; 2017-03-27)
PROC: 0DB38ZX Excision of Lower Esophagus, Via Natural or Artificial Opening Endoscopic, Diagnostic (ICD-10-PCS; 2017-03-27)
PROC: 0DB98ZX Excision of Duodenum, Via Natural or Artificial Opening Endoscopic, Diagnostic (ICD-10-PCS; principal; 2017-03-27 14:46)
DX: R07.2 Precordial pain (principal); R10.84 Generalized abdominal pain; R11.2 Nausea with vomiting, unspecified; Z98.84 Bariatric surgery status; R93.5 Abnormal findings on diagnostic imaging of other abdominal regions, including retroperitoneum; K21.9 Gastro-esophageal reflux disease without esophagitis; K20.8 Other esophagitis
CPT/HCPCS: 36415; 74020-TC; 74177-TC; 74230-TC; 80048; 80053; 81003; 82272; 82550; 82553; 83690; 84484; 84703; 85025; 88305-TC; 88312-TC; 93005; 99285-25; G0378

== ENCOUNTER 2018-05-06 19:51 | Emergency (ER) | payer OTHER ==
--- NOTE | 2018-05-06 20:19 | PDOC ---
Rapid Medical Evaluation Time Seen by Provider: 05/06/18 20:18 Medical Evaluation: Allergies Allergy/AdvReac Type Severity Reaction Status Date / Time No Known Drug Allergies Allergy Verified 03/26/17 19:15 05/06/18 20:18 I performed a brief in-person evaluation of this patient. Chief complaint is: S/p bilat lithotripsy/stents at [facility] yesterday with Dr. Omid York, bilat flank pain and chills Pertinent physical exam findings include: Bilat CVA tenderness I have ordered the following: CBC, CMP, UA/culture, urine . Patient will proceed to the ED for further evaluation. Discharge Disposition - Diagnosis Flank pain - Referrals - Patient Instructions - Post Discharge Activity
[2018-05-06 20:25] VITALS: BP 132/76; PULSE 88; TEMP 99.1; BMI 16.1
== END 2018-05-06 20:30 | disposition left against medical advice (07) ==
LOC: JER 19:51
DX: R10.9 Unspecified abdominal pain (principal)
CPT/HCPCS: 99281-25

== ENCOUNTER 2019-11-29 11:11 | Emergency (ER) | payer OTHER ==
[2019-11-29 11:25] VITALS: BMI 35.6
[2019-11-29] MEDS ORDERED: SODIUM CHLORIDE 1,000 ML IV STA (11:25)
[2019-11-29] MEDS ORDERED: KETOROLAC TROMETHAMINE 30 MG/1 ML VIAL IVPUSH ONE (11:25)
[2019-11-29] MEDS ORDERED: ONDANSETRON 4 MG/2 ML VIAL IVPUSH ONE (11:25)
--- NOTE | 2019-11-29 11:26 | PDOC ---
Rapid Medical Evaluation Time Seen by Provider: 11/29/19 11:21 Medical Evaluation: Allergies Allergy/AdvReac Type Severity Reaction Status Date / Time No Known Drug Allergies Allergy Verified 05/06/18 20:25 11/29/19 11:23 I have performed a brief in-person evaluation of this patient. The patient presents with a chief complaint of:R flank pain w/ nausea since yesterday, similar to prior renal stones which pt has had surgery for. F/u with Dr Woo of Pertinent physical exam findings:crying in triage and tachy and hypertensive I have ordered the following:labs/meds The patient will proceed to the ED for further evaluation. 11/29/19 11:26 Discharge Disposition - Diagnosis Right flank pain - Referrals - Patient Instructions - Post Discharge Activity
[2019-11-29] MEDS ORDERED: ACETAMINOPHEN 1000 MG/100 ML VIAL (NON FORMULARY) IVPB ONE (12:30)
[2019-11-29] MEDS ORDERED: KETOROLAC TROMETHAMINE 30 MG/1 ML VIAL ONE (13:04)
[2019-11-29] MEDS ORDERED: ACETAMINOPHEN INJECTION 100 ML IVPB ONE (13:05)
--- NOTE | 2019-11-29 13:30 | PDOC ---
History of Present Illness - General Stated Complaint: KIDNEY PAIN Time Seen by Provider: 11/29/19 11:21 - History of Present Illness Initial Comments: 11/29/19 12:51 34 yo female with pmh of kidney stone presenting to ED for right sided flank pain for the past day. Pt explains she went to a libertarian the day before symptoms started where she drank a lot of soda and after that had sharp right sided pain that feels exactly like her kidney stone in the past. Pt explains pain has been getting progressively worse. Pt explains its a sharp 10/10 pain on her right side. Pt denies nausea, emesis, chest pain, sob, fevers, chills, dysuria, urinary frequency, diarrhea, constipation. PMH: multiple Kidney stone PSH: c-sections, multiple lithotripsies, gastric sleeve Allergies: NKDA Social: drinks rarely; currently smokes; denies drug use OBGYN: LMP few days ago; IUD in placed Meds: denies PCP: Dr. Doherty urologist: Dr. Jacques Past History - Medical History Allergies/Adverse Reactions: Allergies Allergy/AdvReac Type Severity Reaction Status Date / Time No Known Drug Allergies Allergy Verified 05/06/18 20:25 Home Medications: Ambulatory Orders Acetaminophen [Tylenol .Regular Strength -] 650 mg PO Q6H PRN tablet 03/28/17 Hydrocodone/Acetaminophen [Vicodin 5-300 mg Tablet] 1 each PO QID PRN 5 Days #20 tablet MDD 4 03/28/17 Pantoprazole Sodium [Protonix -] 40 mg PO BID #60 tablet.ec 03/28/17 Sucralfate Oral Suspension [Carafate Oral Suspension -] 1 gm PO QID #300 ml 03/28/17 Acetaminophen 325 mg PO PRN #30 tablet 11/29/19 Ibuprofen 600 mg PO QID PRN #20 tablet 11/29/19 Ondansetron HCl [Zofran] 4 mg PO TID PRN #9 tablet 11/29/19 Oxycodone HCl 10 mg PO TID PRN #10 tablet MDD 3 11/29/19 Asthma: No Cancer: No Cardiac Disorders: No COPD: No Diabetes: No HTN: No Kidney Stones: Yes Seizures: No Thyroid Disease: No - Surgical History Abdominal Surgery: Yes (LAP BAND 2011, TIGHTENING 09/08/14) - Reproductive History Is Patient Now?: No - Psycho-Social/Smoking History Smoking History: Never smoked Have you smoked in the past 12 months: No Number of Cigarettes Smoked Daily: 1 Information on smoking cessation initiated: No - Substance Abuse Hx (Audit-C & DAST Scrn) How often the patient has a drink containing alcohol: Monthly or less Score: In Men: 4 or > Positive; In Women: 3 or > Positive: 1 Screen Result (Pos requires Nsg. Audit-10AR): Negative In the last yr the pt used illegal drug/Rx for NonMed reason: No Score: Yes response is considered Positive: 0 Screen Result (Positive result requires Nsg. DAST-10): Negative Review of Systems - Review of Systems Comments:: 11/30/19 12:05 GENERAL/CONSTITUTIONAL: No fever or chills. No weakness. HEAD, EYES, EARS, NOSE AND THROAT: No change in vision. No ear pain or discharge. No sore throat. CARDIOVASCULAR: No chest pain or shortness of breath RESPIRATORY: No cough, wheezing, or hemoptysis. GASTROINTESTINAL: No nausea, vomiting, diarrhea or constipation. GENITOURINARY: No dysuria, frequency, or change in urination. Right sided flank pain MUSCULOSKELETAL: No joint or muscle swelling or pain. No neck or back pain. SKIN: No rash NEUROLOGIC: No headache, vertigo, loss of consciousness, or change in strength/ sensation. ENDOCRINE: No increased thirst. No abnormal weight change ALLERGIC/IMMUNOLOGIC: No hives or skin allergy. *Physical Exam - Vital Signs Last Vital Signs Temp Pulse Resp BP Pulse Ox 105 H 22 H 156/105 H 99 11/29/19 11:23 11/29/19 11:23 11/29/19 11:23 11/29/19 11:23 - Physical Exam 11/30/19 12:06 GENERAL: Awake, alert, and fully oriented, in severe distressdistress HEAD: No signs of trauma, normocephalic, atraumatic EYES: PERRLA, EOMI, sclera anicteric, conjunctiva clear ENT: Auricles normal inspection, hearing grossly normal, nares patent, oropharynx clear without exudates. Moist mucosa NECK: Normal ROM, supple, no lymphadenopathy, JVD, or masses LUNGS: No distress, speaks full sentences, clear to auscultation bilaterally HEART: Regular rate and rhythm, normal S1 and S2, no murmurs, rubs or gallops, peripheral pulses normal and equal bilaterally. ABDOMEN: Soft, nontender, normoactive bowel sounds. No guarding, no rebound. No masses. No CVA tenderness bilaterally EXTREMITIES : Normal inspection, Normal range of motion, no edema. No clubbing or cyanosis. NEUROLOGICAL: Cranial nerves II through XII grossly intact. Normal speech, normal gait, no focal sensorimotor deficits SKIN: Warm, Dry, normal turgor, no rashes or lesions noted ED Treatment Course - LABORATORY CBC & Chemistry Diagram: 11/29/19 13:27 11/29/19 13:27 Medical Decision Making - Medical Decision Making 11/29/19 17:36 34 yo female with prior history of kidney stone presents to ED for right sided flank pain radiating to the back that feels similar to her kidney stone. Pt CBC, CMP, lipase, UA, and spiral CT was done. Pt was given 1mg dilaudid IM Pt spiral shows .4cm stone. Pt has urologist which she will follow up with. Pt able to tolerate PO with no WBC on UA or cbc. Pt has no fever. Pt will be dc with uro follow up and pain meds. Discharge - Discharge Information Problems reviewed: Yes Clinical Impression/Diagnosis: Right flank pain Urolithiasis Qualifiers: Urinary calculus location: other lower urinary tract location Qualified Code(s): N21.8 - Other lower urinary tract calculus Condition: Good Disposition: HOME - Additional Discharge Information Prescriptions: Acetaminophen 325 mg PO PRN #30 tablet Ibuprofen 600 mg PO QID PRN #20 tablet PRN Reason: Pain Level 4 - 6 Oxycodone HCl 10 mg PO TID PRN #10 tablet MDD 3 PRN Reason: Pain Level 7 - 10 Ondansetron HCl [Zofran] 4 mg PO TID PRN #9 tablet PRN Reason: nausea vomiting - Follow up/Referral Referrals: Renuka Keen [Primary Care Provider] - Ngoc Woo MD [Staff Physician] - - Patient Discharge Instructions Patient Printed Discharge Instructions: Kidney Stones -- Adult Additional Instructions: You came to the ED for right flank pain. This is most likely from a kidney stone. At the ED we did a labs, gave you pain medication, and did imaging. The imaging showed a kidney stone and other incidental findings which we will give you a copy of to follow up with your PCP within the next week. Your work up is not complete without following up with your urologist or one we referred you to within the next few days. If you have any of the following please return: - unable to eat anything by mouth - fever chills - burning in urination or urinary frequency - if pain is traveling up back For any emergency please call for medical help right away. - Post Discharge Activity Vital Signs - Vital Signs Vital signs refused: No Temperature: 98.7 F Temperature source: Oral Pulse Rate: 67 Blood Pressure: 142/87
[2019-11-29] MEDS ORDERED: HYDROmorphone HCl 2 MG/ML VIAL ONE ×2 (13:33→14:16)
[2019-11-29] MEDS ORDERED: HYDROmorphone HCL CARPU-JECT 2 MG/1 ML DISP.SYRIN IVPUSH ONE (13:34)
[2019-11-29 13:49] LABS: BASO % 0.4 % (0-2.0); EOS % 0.5 % (0-4.5); HEMATOCRIT 39.1 % (32.4-45.2); HEMOGLOBIN 12.7 GM/dL (10.7-15.3); MCH 27.2 pg (25.7-33.7); MCHC 32.5 g/dl (32.0-36.0); MEAN CELL VOLUME 83.6 fl (80-96); MEAN PLT VOLUME 8.3 fl (7.5-11.1); MONO % 3.6 % (3.8-10.2); NEUT % 72.5 % (42.8-82.8); PLATELET COUNT 264 K/MM3 (134-434); RBC 4.67 M/mm3 (3.60-5.2); RDW 14.3 % (11.6-15.6); WHITE BLOOD COUNT 7.8 K/mm3 (4.0-10.0)
[2019-11-29] MEDS ORDERED: HYDROmorphone HCL CARPU-JECT 2 MG/1 ML DISP.SYRIN IM ONE (14:14)
[2019-11-29 14:20] LABS: ALBUMIN 3.8 g/dl (3.4-5.0); BILIRUBIN,TOTAL 0.5 mg/dL (0.2-1); BLOOD UREA NITROGEN 6.7 mg/dL (7-18); CALCIUM 9.3 mg/dL (8.5-10.1); CREATININE 0.6 mg/dL (0.55-1.3); TOT PROT 7.2 g/dl (6.4-8.2)
--- NOTE | 2019-11-29 14:36 | PDOC ---
Attending Attestation - Resident Resident Name: [place]fel[place] - ED Attending Attestation I have performed the following: I have examined & evaluated the patient, The case was reviewed & discussed with the resident, I agree w/resident's findings & plan - HPI HPI: 11/29/19 14:34 34 yo female with pmh of kidney stones, lap band surgery, obesity presenting to ED for right sided flank pain radiating to the RLQ/groin x1 day. Pt explains she went to a green party the day before symptoms started where she drank a lot of soda and after that had sharp right sided pain that feels exactly like her kidney stone in the past. Pt explains pain has been getting progressively worse. Pt explains its a sharp 10/10 pain on her right side. Pt denies nausea, emesis, chest pain, sob, fevers, chills, dysuria, urinary frequency, diarrhea, constipation. - Physicial Exam PE: 11/29/19 14:34 Agree with the resident's HPI and PE as documented in the electronic medical record. NAD, awake and alert, EOMI, PERRL, nl conjunctiva, anicteric; neck supple. lungs clear, RRR, abdomen soft obese, mild Rt CVAT, right-sided flank tenderness and right lower quadrant tenderness. BURKS x4, no focal neuro deficits. No peripheral edema. normal color for ethnicity, WWP. 11/29/19 17:43 - Medical Decision Making 11/29/19 14:35 Vital Signs Temp Pulse Resp BP Pulse Ox 105 H 22 H 156/105 H 99 11/29/19 11:23 11/29/19 11:23 11/29/19 11:23 11/29/19 11:23 Vital signs reviewed, mild tachycardia and hypertensive likely due to the pain. DDx abdominal pain: Renal colic, obstructed stone, biliary colic, metabolic/electrolyte derangements. GERD, PUD, esophageal spasm, pancreatitis, hepatitis, constipation, colitis, gastroenteritis, cholecystitis, UTI, pyelon ephritis, obstruction, perforation, medication side effect, hernia, appendicitis, diverticulitis, msk strain, mesenteric adenitis, psoas abscess. Clinically the patient presents with symptomatic ureterolithiasis (kidney stones). IV pain medications, antiemetics, and IV fluids were given. A CT Abdomen/Pelvis was obtained for concern for a possible obstructing kidney stone and to rule out other pathologic conditions. The CT confirmed revealed a stone, She does have mild to moderate right hydroureteronephrosis, there is a 0.4 cm obstructing ureteral stone. This is the most likely cause of her symptoms given her kidney stone history. There are also several nonobstructing bilateral renal stones noted. Incidentaloma also noted, subtle visualization of approximately 5 x 3.7 x 2.3 cm nonspecific hypodense retroperitoneal structure interposed between the pancreatic uncinate process and inferior vena cava no gross changes noticed from prior exam. Nonemergent outpatient follow-up indicated, IUD in place without malposition The patient's labs were within normal limits and no leukocytosis, normal Cr function. UA_unremarkable, some blood, no infection, neg preg test With pain medication the patient improved significantly. rpt VS improved, no longer tachy/hypertensive, initially pain related The patient is referred to the on-call urologist for follow up and is discharged with oral narcotics for pain control, Flomax, antiemetics, and given the following return precautions: Fever > 100.5, pain not controlled with narcotics, worsening pain, dehydration, vomiting or any other concerns and to strain the urine. NSAIDS/tylenol for mild to moderate pain, rx oxycodone PRN for more severe pain. zofran for nausea, adequate hydration and oral fluids and air conditioning in hot weather. literature/evidence low for flomax benefit, so defer. urine strainer to catch urine. 11/29/19 14:36 11/29/19 17:19 11/29/19 17:43 Discharge - Discharge Information Problems reviewed: Yes Clinical Impression/Diagnosis: Right flank pain Urolithiasis Qualifiers: Urinary calculus location: other lower urinary tract location Qualified Code(s): N21.8 - Other lower urinary tract calculus Condition: Good Disposition: HOME - Admission No - Additional Discharge Information Prescriptions: Acetaminophen 325 mg PO PRN #30 tablet Ibuprofen 600 mg PO QID PRN #20 tablet PRN Reason: Pain Level 4 - 6 Oxycodone HCl 10 mg PO TID PRN #10 tablet MDD 3 PRN Reason: Pain Level 7 - 10 Ondansetron HCl [Zofran] 4 mg PO TID PRN #9 tablet PRN Reason: nausea vomiting - Follow up/Referral Referrals: Renuka Keen [Primary Care Provider] - Ngoc Woo MD [Staff Physician] - - Patient Discharge Instructions Patient Printed Discharge Instructions: Kidney Stones -- Adult Additional Instructions: You came to the ED for right flank pain. This is most likely from a kidney stone. At the ED we did a labs, gave you pain medication, and did imaging. The imaging showed a kidney stone and other incidental findings which we will give you a copy of to follow up with your PCP within the next week. Your work up is not complete without following up with your urologist or one we referred you to within the next few days. If you have any of the following please return: - unable to eat anything by mouth - fever chills - burning in urination or urinary frequency - if pain is traveling up back For any emergency please call for medical help right away. - Post Discharge Activity
[2019-11-29 15:53] LABS: HCG,QUALITATIVE URINE Negative
[2019-11-29 16:02] LABS: URINE APPEARANCE Clear; URINE BILIRUBIN Negative (NEGATIVE); URINE COLOR Yellow; URINE GLUCOSE (UA) Negative (NEGATIVE); URINE KETONE Trace (NEGATIVE); URINE LEUK ESTERASE Negative (NEGATIVE); URINE NITRITE Negative (NEGATIVE); URINE PROTEIN Trace (NEGATIVE); URINE UROBILINOGEN 0.2 mg/dL (0.2-1.0)
[2019-11-29 18:03] VITALS: BP 142/87; PULSE 67; TEMP 98.7
== END 2019-11-29 18:22 | disposition home or self-care (01) ==
LOC: JER 11:11
PROC: 3E033NZ Introduction of Analgesics, Hypnotics, Sedatives into Peripheral Vein, Percutaneous Approach (ICD-10-PCS; principal; 2019-11-29)
PROC: 3E033GC Introduction of Other Therapeutic Substance into Peripheral Vein, Percutaneous Approach (ICD-10-PCS; 2019-11-29)
PROC: 3E0337Z Introduction of Electrolytic and Water Balance Substance into Peripheral Vein, Percutaneous Approach (ICD-10-PCS; 2019-11-29)
PROC: 3E023NZ Introduction of Analgesics, Hypnotics, Sedatives into Muscle, Percutaneous Approach (ICD-10-PCS; 2019-11-29)
DX: N21.8 Other lower urinary tract calculus (principal)
CPT/HCPCS: 36415; 74176-TC; 80053; 81003; 83690; 84703; 85025; 87086; 87186; 99285-25

== ENCOUNTER 2019-12-18 07:30 | Inpatient (IN) | payer OTHER ==
[2019-12-18 07:39] VITALS: BMI 37.4
[2019-12-18] MEDS ORDERED: ACETAMINOPHEN 325 MG TABLET (FP) ONE (07:41)
[2019-12-18] MEDS ORDERED: ACETAMINOPHEN 325 MG TABLET (FP) PO ONE (07:44)
--- NOTE | 2019-12-18 08:10 | PDOC ---
History of Present Illness - General Chief Complaint: Pain Stated Complaint: FLANK PAIN Time Seen by Provider: 12/18/19 08:10 History Source: Patient Exam Limitations: No Limitations - History of Present Illness Initial Comments: 12/18/19 10:26 34F with PMH of kidney stones, c-sections x2, and obesity presents to the ED with constant sharp right flank/back pain that occasionally radiates to the groin, starting 2 days ago. She reports abdominal pain. Denies nausea, vomiting, dysuria, hematuria, abnormal vaginal bleeding or discharge, diarrhea, constipation. PMH: as in HPI SH: see below Meds: Allergies: NKDA Tob/Etoh/Rec drugs: PCP: ROS GENERAL/CONSTITUTIONAL: No fever or chills. No weakness. HEENT: No change in vision. No ear pain or discharge. No sore throat. CARDIOVASCULAR: No chest pain or shortness of breath RESPIRATORY: No cough, wheezing, or hemoptysis. GASTROINTESTINAL: No nausea, vomiting, diarrhea or constipation. GENITOURINARY: No dysuria, frequency, or change in urination. MUSCULOSKELETAL: No joint or muscle swelling or pain. No neck or back pain. SKIN: No rash NEUROLOGIC: No headache, vertigo, loss of consciousness, or change in strength/sensation. ENDOCRINE: No increased thirst. No abnormal weight change HEMATOLOGIC/LYMPHATIC: No anemia, easy bleeding, or history of blood clots. ALLERGIC/IMMUNOLOGIC: No hives or skin allergy. Vital Signs Temp Pulse Resp BP Pulse Ox 103.3 F H 120 H 20 103/65 98 12/18/19 07:34 12/18/19 07:34 12/18/19 07:34 12/18/19 07:34 12/18/19 07:34 PE GENERAL: Awake, alert, and fully oriented; no acute distress HEAD: No signs of trauma, normocephalic, atraumatic EYES: PERRLA, EOMI, sclera anicteric, conjunctiva clear ENT: Auricles normal inspection, hearing grossly normal, nares patent, moist mucosa, oropharynx clear without exudates. NECK: Normal ROM, supple, no LAD, JVD, or masses HEART: Regular rate and rhythm, normal S1/S2, no murmurs, rubs or gallops, enmanuel pheral pulses normal and equal bilaterally. LUNGS: No distress, speaks full sentences, clear to auscultation bilaterally ABDOMEN: Soft, diffuse tenderness. No guarding, no rebound. No masses. +CVA tenderness (right), +reddy EXTREMITIES: Normal inspection, Normal range of motion, no edema. No clubbing or cyanosis. NEUROLOGICAL: Normal speech, no focal sensorimotor deficits SKIN: Warm, Dry, normal turgor, no rashes or lesions noted Assessment and Plan 1. Infected nephrolithiasis w/ sepsis - febrile, tachy, with cva tenderness 2. cholecystitis - +reddy 3. PID Darinel Floyd, PGY1 Emergency Medicine Past History - Medical History Allergies/Adverse Reactions: Allergies Allergy/AdvReac Type Severity Reaction Status Date / Time No Known Drug Allergies Allergy Verified 12/18/19 07:34 Home Medications: Ambulatory Orders Acetaminophen [Tylenol .Regular Strength -] 650 mg PO Q6H PRN tablet 03/28/17 Hydrocodone/Acetaminophen [Vicodin 5-300 mg Tablet] 1 each PO QID PRN 5 Days #20 tablet MDD 4 03/28/17 Pantoprazole Sodium [Protonix -] 40 mg PO BID #60 tablet.ec 03/28/17 Sucralfate Oral Suspension [Carafate Oral Suspension -] 1 gm PO QID #300 ml 03/28/17 Acetaminophen 325 mg PO PRN #30 tablet 11/29/19 Ibuprofen 600 mg PO QID PRN #20 tablet 11/29/19 Ondansetron HCl [Zofran] 4 mg PO TID PRN #9 tablet 11/29/19 Oxycodone HCl 10 mg PO TID PRN #10 tablet MDD 3 11/29/19 Sulfamethoxazole/Trimethoprim [Bactrim Ds -] 1 tab PO BID 3 Days #6 tablet 12/08 Asthma: No Cancer: No Cardiac Disorders: No COPD: No Diabetes: No HTN: No Kidney Stones: Yes Seizures: No Thyroid Disease: No - Surgical History Abdominal Surgery: Yes (LAP BAND 2011, TIGHTENING 09/08/14) - Reproductive History Is Patient Now?: No - Immunization History Immunization Up to Date: Yes - Psycho-Social/Smoking History Smoking History: Never smoked Have you smoked in the past 12 months: No Number of Cigarettes Smoked Daily: 1 - Substance Abuse Hx (Audit-C & DAST Scrn) How often the patient has a drink containing alcohol: Never Score: In Men: 4 or > Positive; In Women: 3 or > Positive: 0 Screen Result (Pos requires Nsg. Audit-10AR): Negative *Physical Exam - Vital Signs Last Vital Signs Temp Pulse Resp BP Pulse Ox 103.3 F H 120 H 20 103/65 98 12/18/19 07:34 12/18/19 07:34 12/18/19 07:34 12/18/19 07:34 12/18/19 07:34 ED Treatment Course - LABORATORY CBC & Chemistry Diagram: 12/18/19 09:10 12/18/19 09:10 - Medications Given in the ED: ED Medications Discontinued Medications Generic Name Dose Route Start Last Admin Trade Name Josh PRN Reason Stop Dose Admin Acetaminophen 975 mg 12/18/19 07:44 12/18/19 07:45 Tylenol - PO 12/18/19 07:45 975 mg NOW ONE Administration Medical Decision Making - Medical Decision Making 12/18/19 10:41 34F with PMH of kidney stones, c-sections x2, and obesity presents to the ED with constant sharp right flank/back pain that occasionally radiates to the groin, starting 2 days ago. She reports abdominal pain. Denies nausea, vomiting, dysuria, hematuria, abnormal vaginal bleeding or discharge, diarrhea, constipation. +CVA tenderness (right), +reddy, diffuse abdominal pain. Vital Signs Temp Pulse Resp BP Pulse Ox 103.3 F H 120 H 20 103/65 98 12/18/19 07:34 12/18/19 07:34 12/18/19 07:34 12/18/19 07:34 12/18/19 07:34 DDx: 1. Infected nephrolithiasis +/- sepsis +/- perinephric abscess - febrile, tachy, with cva tenderness 2. cholecystitis - +reddy, may be confounded by right sided flank/abdominal tenderness 3. PID, tubo-ovarian abscess Labs notable for: - luekocytosis @ 17.7 - Hypokalemia, K 3.2; otherwise CMP wnl - Lipase wnl - VBG wnl - UA: >9000 bacteria, +3 blood, +nitrate, +leukocyte esterase - Upreg negative - lactate wnl - Given 4mg IV zofran, 4mg IV morphine x2, 1L LR - Bedside ultrasound -- hydronephrosis right kidney, normal left; normal gallbladder w/o wall thickening - Given 1000mg IV rocephin Vital Signs Temp Pulse Resp BP Pulse Ox 99.2 F 70 18 110/80 99 12/18/19 11:19 12/18/19 11:19 12/18/19 11:12/18/19 11:19 12/18/19 12:57 - vitals improved, now afebrile and tachy resolved - CT abdomen/pelvis: right distal ureteral stone 4x3mm with mild-moderate hydronephrosis of right kidney 12/18/19 13:35 - spoke with Dr. York, urology, and said that he would see the patient this afternoon - Given 4mg morphine 12/18/19 14:28 - spoke with Dr. Mishra, accepted admission Discharge - Discharge Information Problems reviewed: Yes Clinical Impression/Diagnosis: Right nephrolithiasis, Hydronephrosis due to obstruction of ureter, Flank pain Condition: Stable - Admission Yes - Follow up/Referral - Patient Discharge Instructions - Post Discharge Activity
[2019-12-18] MEDS ORDERED: LACTATED RINGERS SOLUTION 1000 ML INFUS.BAG IV ONE (08:42)
[2019-12-18] MEDS ORDERED: ACETAMINOPHEN 1000 MG/100 ML VIAL (NON FORMULARY) IVPB ONE ×2 (08:42→20:32)
[2019-12-18] MEDS ORDERED: morphine CARPU-JECT 4 MG/1 ML DISP.SYRIN IVPB ONE (08:48)
[2019-12-18] MEDS ORDERED: ONDANSETRON 4 MG/2 ML VIAL IVPUSH ONE (08:49)
[2019-12-18] MEDS ORDERED: morphine SULFATE 4 MG/ML VIAL ONE ×3 (09:08→16:08)
[2019-12-18 09:15] LABS: EPI CELLS 3 /uL (0-25.1); HCG,QUALITATIVE URINE Negative; HYALINE CASTS 17 /uL (0-3.1); URINE APPEARANCE CLOUDY; URINE BACTERIA >9,000 /uL (0-1359); URINE BILIRUBIN NEGATIVE (NEGATIVE); URINE COLOR YELLOW; URINE GLUCOSE (UA) NEGATIVE (NEGATIVE); URINE KETONE NEGATIVE (NEGATIVE); URINE LEUK ESTERASE 2+ (NEGATIVE); URINE NITRITE POSITIVE (NEGATIVE); URINE PROTEIN 1+ (NEGATIVE); URINE RBC 542 /uL (0-23.9); URINE WBC 740 /uL (0-25.8)
[2019-12-18 09:38] LABS: VENOUS BASE EXCESS -1.3 mmol/L (-2-2); VENOUS O2 SATURATION 61.7 % (70-80); VENOUS PCO2 38.7 mmHg (38-52); VENOUS PH 7.397 (7.310-7.410)
[2019-12-18 09:46] LABS: BASO % 0.2 % (0-2.0); HEMATOCRIT 37.7 % (32.4-45.2); HEMOGLOBIN 12.1 GM/dL (10.7-15.3); LYMPH % 7.6 % (8-40); MCH 27.2 pg (25.7-33.7); MCHC 32.1 g/dl (32.0-36.0); MEAN CELL VOLUME 84.6 fl (80-96); MEAN PLT VOLUME 8.6 fl (7.5-11.1); MONO % 7.6 % (3.8-10.2); NEUT % 84.6 % (42.8-82.8); PLATELET COUNT 254 K/MM3 (134-434); RBC 4.45 M/mm3 (3.60-5.2); RDW 14.1 % (11.6-15.6); WHITE BLOOD COUNT 17.7 K/mm3 (4.0-10.0)
[2019-12-18] MEDS ORDERED: morphine CARPU-JECT 4 MG/1 ML DISP.SYRIN IVPUSH ONE ×2 (09:52→14:34)
[2019-12-18 10:07] LABS: ALBUMIN 3.2 g/dl (3.4-5.0); BILIRUBIN,TOTAL 0.6 mg/dL (0.2-1); BLOOD UREA NITROGEN 4.5 mg/dL (7-18); CALCIUM 8.7 mg/dL (8.5-10.1); CREATININE 0.7 mg/dL (0.55-1.3); POTASSIUM 3.2 mmol/L (3.5-5.1); TOT PROT 6.8 g/dl (6.4-8.2)
[2019-12-18] MEDS ORDERED: KETOROLAC TROMETHAMINE 15 MG/ML VIAL IVPUSH ONE (10:45)
[2019-12-18] MEDS ORDERED: KETOROLAC TROMETHAMINE 15 MG/ML VIAL ONE (10:47)
--- NOTE | 2019-12-18 11:15 | PDOC ---
Documentation entered by Roseline Paniagua SCRIBE, acting as scribe for Sarah Vee MD. Sarah Vee MD: This documentation has been prepared by the Arcelia parra Xhesika, SCRIBE, under my direction and personally reviewed by me in its entirety. I confirm that the documentation accurately reflects all work, treatment, procedures, and medical decision making performed by me. Attending Attestation - Resident Resident Name: Darinel Floyd - ED Attending Attestation I have performed the following: I have examined & evaluated the patient, The case was reviewed & discussed with the resident, I agree w/resident's findings & plan, Exceptions are as noted - HPI HPI: 12/18/19 09:24 The patient is a 34y/o female with pmh of kidney stones, lap band surgery, and obesity who presents to the ED for right sided flank x3 day. Pt states her pain is intermittent, sharp, radiating to her groin area, associated with nausea and 2 days of fevers. The patient denies chest pain, shortness of breath, headache and dizziness. Denies chills, cough, vomiting, diarrhea and constipation. Denies dysuria, frequency, urgency and hematuria. Denies any vaginal bleeding or vaginal discharge. Denies any sick contacts. Allergies: NKDA Past Surgical hx: PCP: Herrera Barrett - Physicial Exam PE: 12/18/19 11:15 Awake alert no acute distress lungs are clear bilaterally heart is regular with any murmurs rubs or gallops abdomen is soft there is right upper quadrant right mid quadrant and suprapubic tenderness no rebound no guarding she does have right CVA tenderness remedies are warm well perfused skin is warm and dry no rash neurologically awake alert and oriented x3 - Medical Decision Making 12/18/19 11:16 34-year-old female history of prior renal colic requiring lithotripsy here with 3 days of right flank pain sharp intermittent and associated fevers x2 days negative urinary symptoms. On exam she does have significant right mid quadrant upper quadrant and CVA tenderness. Differential includes infected stone pyelonephritis appendicitis considered and less likely based on location of her pain or cholecystitis. Patient denies any vaginal symptoms Focused ED ultrasound renal performed patient has mild hydro-on the right side bladder is nondistended the left side is normal poorly visualized kidney however due to body habitus instantly gallbladder evaluated as well and was normal without stones. Plan CT abdomen and pelvis UA is positive for infection and blood patient has likely an infected stone CT abdomen pelvis is pending we will treat with antibiotics and likely require admission she follows up with Dr. Woo for urology Discharge - Discharge Information Problems reviewed: Yes Clinical Impression/Diagnosis: Right nephrolithiasis, Hydronephrosis due to obstruction of ureter, Flank pain Condition: Stable - Follow up/Referral - Patient Discharge Instructions - Post Discharge Activity
[2019-12-18] MEDS ORDERED: CEFTRIAXONE 1,000 MG in DEXTROSE 5%-WATER - 50 ML IVPB ONE (11:18)
[2019-12-18] MEDS ORDERED: CEFTRIAXONE 1 GM/50 ML BAG ONE (12:03)
--- NOTE | 2019-12-18 14:56 | EKG ---
Test Reason : Blood Pressure : / mmHG Vent. Rate : 093 BPM Atrial Rate : 093 BPM P-R Int : 158 ms QRS Dur : 080 ms QT Int : 354 ms P-R-T Axes : 018 024 -02 degrees QTc Int : 440 ms NORMAL SINUS RHYTHM NONSPECIFIC T WAVE ABNORMALITY ABNORMAL ECG WHEN COMPARED WITH ECG OF 26-MAR-2017 21:02, NONSPECIFIC T WAVE ABNORMALITY NOW EVIDENT IN ANTEROLATERAL LEADS Confirmed by Charly Anand ([id number]) on 12/18/2019 2:56:28 PM Referred By: Confirmed By:Charly Anand
[2019-12-18] MEDS ORDERED: ONDANSETRON 4 MG/2 ML VIAL IVPUSH PRN (17:02)
[2019-12-18] MEDS: D5-1/2NS+20 MEQ KCL - 20 MEQ/1,000 ML INFUS.BAG IV SCH (17:33)
[2019-12-18] MEDS ORDERED: ACETAMINOPHEN INJECTION 100 ML IVPB ONE (23:17)
[2019-12-19] MEDS: HEPARIN NA (PORCINE) 5,000 UNITS/ML 1ML VIAL SQ SCH ×2 (00:56→09:43)
[2019-12-19] MEDS: PANTOPRAZOLE 40 MG TABLET PO SCH ×2 (00:57→09:42)
[2019-12-19] MEDS: ACETAMINOPHEN 1000 MG/100 ML VIAL (NON FORMULARY) IVPB PRN ×2 (01:50→06:21)
[2019-12-19] MEDS: D5-1/2NS+20 MEQ KCL - 20 MEQ/1,000 ML INFUS.BAG IV SCH (01:51)
--- NOTE | 2019-12-19 08:09 | PN ---
Progress Note (short form) - Note Progress Note: ID consult dictated imp/reccd 34 yo female seen in ED on 11/28 with irght flank pain, ct scan with right nephrolithiasis- no fevers d/aldo home on Bactrim and pain meds to f/u with urology- she didnot f/u now returns with fever, worsening flank pain and nausea and vomiting GRAM NEGATIVE BACTEREMIA OBSTRUCTIVE UROPATHY SECONDAY TO nephrolithiasis RIGHT HYDRONEPHROSIS ABDOMINAL MASS HISTORY OF GASTRIC SLEEVE ZOSYN FOR NOW NO HISTORY OF MDRO UROLOGY CONSULT FOR STENT TO RELIEVE OBSTRUCTION
[2019-12-19 08:13] LABS: BASO % 0.2 % (0-2.0); EOS % 0.4 % (0-4.5); HEMATOCRIT 32.7 % (32.4-45.2); HEMOGLOBIN 10.5 GM/dL (10.7-15.3); LYMPH % 11.1 % (8-40); MCH 26.8 pg (25.7-33.7); MCHC 32.2 g/dl (32.0-36.0); MEAN CELL VOLUME 83.3 fl (80-96); MEAN PLT VOLUME 8.2 fl (7.5-11.1); MONO % 7.2 % (3.8-10.2); NEUT % 81.1 % (42.8-82.8); PLATELET COUNT 237 K/MM3 (134-434); RBC 3.93 M/mm3 (3.60-5.2); RDW 14.6 % (11.6-15.6); WHITE BLOOD COUNT 14.9 K/mm3 (4.0-10.0)
[2019-12-19] MEDS ORDERED: PIPERACILLIN/TAZOBACTAM 4.5 GM VIAL IVPB ONE ×2 (08:23→18:21)
[2019-12-19] MEDS ORDERED: DEXTROSE 5%-WATER 100 ML IVPB ONE ×2 (08:23→18:21)
[2019-12-19] MEDS ORDERED: POTASSIUM CHLORIDE TABS 20 MEQ TABLET.ER (FP) PO ONE (08:25)
[2019-12-19] MEDS: PIPERACILLIN/TAZOB 4.5 GM 4.5 GM in DEXTROSE 5%-WATER 100 ML IVPB SCH ×3 (08:30→18:30)
[2019-12-19 08:41] LABS: ALBUMIN 2.6 g/dl (3.4-5.0); BILIRUBIN,TOTAL 0.6 mg/dL (0.2-1); BLOOD UREA NITROGEN 4.2 mg/dL (7-18); CALCIUM 7.9 mg/dL (8.5-10.1); CREATININE 0.5 mg/dL (0.55-1.3); POTASSIUM 3.3 mmol/L (3.5-5.1); TOT PROT 5.7 g/dl (6.4-8.2)
[2019-12-19] MEDS ORDERED: MORPHINE SULFATE 2 MG/ML VIAL IM PRN (09:16)
--- NOTE | 2019-12-19 09:18 | HP ---
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 History of Recent Travel: No Home Medications - Allergies Allergies/Adverse Reactions: Allergies Allergy/AdvReac Type Severity Reaction Status Date / Time No Known Drug Allergies Allergy Verified 12/18/19 07:34 - Home Medications Home Medications: Ambulatory Orders Acetaminophen [Tylenol .Regular Strength -] 650 mg PO Q6H PRN tablet 03/28/17 Hydrocodone/Acetaminophen [Vicodin 5-300 mg Tablet] 1 each PO QID PRN 5 Days #20 tablet MDD 4 03/28/17 Pantoprazole Sodium [Protonix -] 40 mg PO BID #60 tablet.ec 03/28/17 Sucralfate Oral Suspension [Carafate Oral Suspension -] 1 gm PO QID #300 ml 03/28/17 Acetaminophen 325 mg PO PRN #30 tablet 11/29/19 Ibuprofen 600 mg PO QID PRN #20 tablet 11/29/19 Ondansetron HCl [Zofran] 4 mg PO TID PRN #9 tablet 11/29/19 Oxycodone HCl 10 mg PO TID PRN #10 tablet MDD 3 11/29/19 Sulfamethoxazole/Trimethoprim [Bactrim Ds -] 1 tab PO BID 3 Days #6 tablet 12/09/19 Physical Examination Vital Signs: Vital Signs Temperature 103.1 F H 12/19/19 01:30 Pulse Rate 114 H 12/19/19 01:30 Respiratory Rate 20 12/19/19 01:30 Blood Pressure 130/77 12/19/19 01:30 O2 Sat by Pulse Oximetry (%) 94 L 12/19/19 01:35 Cardiovascular: Yes: Regular Rate and Rhythm Respiratory: Yes: Regular, CTA Bilaterally Gastrointestinal: Yes: Normal Bowel Sounds, Soft Edema: No Labs: CBC, BMP 12/19/19 07:40 12/19/19 07:40 Imaging - Results Cat Scan: Report Reviewed Problem List - Problems (1) Fever Assessment/Plan: Microbiology 12/18/19 08:20 Urine - Urine Clean Catch Urine Culture - Preliminary Lactose Fermenting Neg Bacilli 12/18/19 09:10 Blood - Peripheral Venous Blood Culture - Preliminary Pending Organism 12/18/19 09:10 Blood - Peripheral Venous Blood Culture - Preliminary Pending Organism IV ABX ID CONSULT UROLOGY CONSULT IVF Code(s): R50.9 - FEVER, UNSPECIFIED (2) Hydronephrosis due to obstruction of ureter Assessment/Plan: UROLOGY CONSULT ABX AND FLUIDS PAIN CONTROL Code(s): N13.2 - HYDRONEPHROSIS WITH RENAL AND URETERAL CALCULOUS OBSTRUCTION
[2019-12-19] MEDS ORDERED: MORPHINE SULFATE 2 MG/ML VIAL IVPUSH PRN (09:29)
[2019-12-19] MEDS ORDERED: CEFTRIAXONE 2 GM in DEXTROSE 5%-WATER 100 ML IVPB SCH (10:00)
[2019-12-19] MEDS ORDERED: DEXAMETHASONE SOD PHOSPHATE 4 MG/1 ML VIAL ONE (10:11)
[2019-12-19] MEDS ORDERED: PROPOFOL 20 ML ONE (10:12)
[2019-12-19] MEDS ORDERED: LIDOCAINE HCL/PF 2% SDV 5ML VIAL ONE (10:12)
[2019-12-19] MEDS ORDERED: MIDAZOLAM HCL 2 MG/2 ML SINGLE DOSE VIAL ONE (10:12)
[2019-12-19] MEDS ORDERED: oxyCODONE HCL 5 MG TABLET PO PRN (10:26)
[2019-12-19] MEDS ORDERED: PROMETHAZINE HCL 25 MG/1 ML VIAL IVPB PRN (10:26)
[2019-12-19] MEDS ORDERED: ONDANSETRON 4 MG/2 ML VIAL IVPUSH PRN (10:26)
--- NOTE | 2019-12-19 10:26 | CONS ---
DATE OF CONSULTATION: DATE OF DICTATION: 12/19/2019 The patient is a 34-year-old female with past medical history of kidney stones. She is status post Lap-Band surgery for obesity. She comes in complaining of right flank pain of 3 days' duration. She states that the pain is colicky in nature, sharp and radiates to her right groin. It is associated with nausea as well as fever. The patient denies any shortness of breath, chest pain or hematuria. She denies any sick contacts. She denies any allergies. She has had a in the past. A CAT scan of her abdomen revealed a right hydronephrosis with perirenal stranding. On admission the patient's lab data revealed a white count of 17,700. Her hemoglobin was 12.1 and hematocrit 37.7. Her BUN is 4.2 and creatinine 0.5. Random glucose was 117. Her urinalysis was both positive for blood and nitrites. A urine culture so far is growing out lactose-fermenting gram-negative bacilli. The patient has been on Flomax and her urine has been strained, but nothing has been found. Because of the fever; today it was 103.1; her pulse was 114, blood pressure 130/77, will take patient to OR for possible stenting and relief of her hydronephrosis. This was explained in detail to the patient and she agrees. Patient will need a stone workup as an outpatient. Will follow with you. ODALYS MONTEZ M.D. [id number]
[2019-12-19] MEDS ORDERED: ceFAZolin SODIUM 1 GM VIAL ONE (11:09)
[2019-12-19] MEDS ORDERED: GENTAMICIN SO4 80 MG/2 ML VIAL IVPB ONE (11:15)
[2019-12-19] MEDS ORDERED: ceFAZolin SODIUM 1 GM VIAL IVPB ONE (11:15)
[2019-12-19] MEDS ORDERED: GENTAMICIN SO4 80 MG/2 ML VIAL ONE (11:20)
--- NOTE | 2019-12-19 12:03 | OP ---
Operative Note - Note: Operative Date: 12/19/19 Pre-Operative Diagnosis: rt. hydro, urosepsis, rt. ureteral stone Operation: rull with jj stent Findings: rt. mid-ureteral stone Post-Operative Diagnosis: Same as Pre-op Surgeon: Nikos York Anesthesia: General Specimens Removed: urine, stone Estimated Blood Loss (mls): 0 Instrument used (Debridements only): 0 Drains & Tubes with Location: 24cm-6f- rt. jj stent Drains, Volume Out (mls): 0 Blood Volume Replaced (mls): 0 Fluid Volume Replaced (mls): 0 Operative Report Dictated: Yes
[2019-12-19] MEDS ORDERED: ACETAMINOPHEN INJECTION 100 ML IVPB ONE (12:23)
[2019-12-19] MEDS ORDERED: ACETAMINOPHEN 1000 MG/100 ML VIAL (NON FORMULARY) IVPB ONE (12:42)
[2019-12-19] MEDS: MORPHINE SULFATE 2 MG/ML VIAL IVPUSH PRN ×3 (13:13→21:48)
[2019-12-19] MEDS ORDERED: NALOXONE HCL 0.4 MG/ML VIAL IVPUSH PRN (13:40)
[2019-12-19] MEDS ORDERED: FENTANYL/BUPIVACAINE/NS/PF - PCEA - 50 ML DISP.SYRIN EP SCH (13:45)
[2019-12-19] MEDS ORDERED: ONDANSETRON 4 MG/2 ML VIAL IVPUSH ONE (20:42)
[2019-12-20] MEDS ORDERED: PIPERACILLIN/TAZOBACTAM 4.5 GM VIAL IVPB ONE ×3 (00:23→17:01)
[2019-12-20] MEDS ORDERED: DEXTROSE 5%-WATER 100 ML IVPB ONE ×3 (00:23→17:01)
[2019-12-20] MEDS: PIPERACILLIN/TAZOB 4.5 GM 4.5 GM in DEXTROSE 5%-WATER 100 ML IVPB SCH ×3 (01:15→17:12)
[2019-12-20] MEDS: MORPHINE SULFATE 2 MG/ML VIAL IVPUSH PRN ×3 (01:51→10:29)
[2019-12-20] MEDS ORDERED: ONDANSETRON 4 MG/2 ML VIAL IVPUSH ONE (06:29)
--- NOTE | 2019-12-20 08:15 | PN ---
Progress Note (short form) - Note Progress Note: c/o right flank pain c/o nausea s/p stent placement yesterday Vital Signs Period Temp Pulse Resp BP Sys/Salcedo Pulse Ox Last 24 Hr 98.2 F-99.1 F 59-119 18-20 105-145/61-88 97-100 cor-rrr lungs clear abd soft, right flank pain to palpation ext no edema CBC, BMP 12/19/19 07:40 12/19/19 07:40 Microbiology 12/18/19 08:20 Urine - Urine Clean Catch Urine Culture - Preliminary Lactose Fermenting Neg Bacilli 12/18/19 09:10 Blood - Peripheral Venous Blood Culture - Preliminary Pending Organism 12/18/19 09:10 Blood - Peripheral Venous Blood Culture - Preliminary Pending Organism imp/reccd GRAM NEGATIVE BACTEREMIA OBSTRUCTIVE UROPATHY SECONDAY TO nephrolithiasis RIGHT HYDRONEPHROSIS ABDOMINAL MASS HISTORY OF GASTRIC SLEEVE continue zosyn f/u cultures repeat labs in am Problem List - Problems (1) Gram-negative bacteremia Code(s): R78.81 - BACTEREMIA (2) UTI (urinary tract infection) Code(s): N39.0 - URINARY TRACT INFECTION, SITE NOT SPECIFIED (3) Hydronephrosis due to obstruction of ureter Code(s): N13.2 - HYDRONEPHROSIS WITH RENAL AND URETERAL CALCULOUS OBSTRUCTION (4) Right nephrolithiasis Code(s): N20.0 - CALCULUS OF KIDNEY (5) Abnormal CT of the abdomen Code(s): R93.5 - ABN FINDINGS ON DX IMAGING OF ABD REGIONS, INC RETROPERITON
--- NOTE | 2019-12-20 08:43 | CONS ---
DATE OF CONSULTATION: DATE OF DICTATION: 12/19/2019 HISTORY: Patient is a 34-year-old female well known to me with a history of recurrent renal stones. She is admitted to the hospital with fever and right flank pain. A CT scan revealed a midureteral stone with proximal right hydroureteronephrosis. The patient has been spiking fevers up to 103.7. Her blood pressure is stable. PAST SURGICAL HISTORY: The only significant surgery is she had a lap band placed for weight loss surgery. ALLERGIES: She denies any allergies. PHYSICAL EXAMINATION: General: A 34-year-old female in mild distress. Abdomen: There was right CVA tenderness. There was also tenderness in the right lower quadrant. An ultrasound revealed significant hydroureteronephrosis to the level of the midureter. Her urine is nitrite positive and a culture is pending. Due to the temperature spikes and the leukocytosis patient was taken to the OR today, on December 18. Huong [id number]
--- NOTE | 2019-12-20 08:48 | OP ---
DATE OF OPERATION: DATE OF DICTATION: 12/19/2019 PREOPERATIVE DIAGNOSIS: Right hydronephrosis, urosepsis, ureteral stone. POSTOPERATIVE DIAGNOSIS: Right hydronephrosis, urosepsis, ureteral stone. OPERATIVE PROCEDURE: Cystourethroscopy, right retrograde pyelogram, right ureteroscopy, right extraction of stone and placement of a right JJ stent. ANESTHESIA: General. Under above-stated anesthesia patient was prepped and draped in the usual sterile manner. She was placed in the dorsal lithotomy position. Inspection of the external genitalia revealed a grade 2/4 cystocele. The bladder was entered. Collected 150 mL of urine. This was sent for C&S. Inspection of the bladder revealed squamous metaplasia of the trigone. There was a generalized hyperemia of the bladder mucosa. Ureteral orifices were within normal limits with efflux of clear urine from the left. None was seen from the right. A Flexor tip catheter was placed into the right ureteral orifice and retrograde pyelograms were performed. They revealed a normal lower third ureter with a complete cut-off in the midureter and severe hydroureteronephrosis up to that point. A Glidewire was passed up the right renal unit. The cystoscope was removed. The semirigid ureteroscope was inserted. Ureteroscopy was performed in the usual fashion. A 3- to 4-mm stone was seen in the lower portion of the midureter. This was grasped with a basket and brought out atraumatically. No bleeding was noted. A continuation of the ureteroscopy revealed no other lesions or stones. Therefore, a 24-cm 6-Pashto right JJ stent was left in place. X-rays confirmed good position of the stent. The patient tolerated the procedure well. She returned to the recovery room in good condition. Huong [id number]
[2019-12-20 12:17] LABS: BASO % 0.3 % (0-2.0); HEMATOCRIT 34.6 % (32.4-45.2); HEMOGLOBIN 11.3 GM/dL (10.7-15.3); LYMPH % 15.4 % (8-40); MCH 27.5 pg (25.7-33.7); MCHC 32.7 g/dl (32.0-36.0); MEAN CELL VOLUME 83.9 fl (80-96); MEAN PLT VOLUME 8.9 fl (7.5-11.1); MONO % 4.8 % (3.8-10.2); NEUT % 78.5 % (42.8-82.8); PLATELET COUNT 244 K/MM3 (134-434); RBC 4.12 M/mm3 (3.60-5.2); RDW 14.3 % (11.6-15.6); WHITE BLOOD COUNT 12.3 K/mm3 (4.0-10.0)
--- NOTE | 2019-12-20 12:33 | CONS ---
DATE OF CONSULTATION: DATE OF DICTATION: 12/20/2019 This is a 34-year-old woman, past medical history of nephrolithiasis and prior gastric sleeve. She was seen in the emergency room on the with right flank pain. She had a CAT scan that showed nephrolithiasis. She had no fever. She was discharged on Bactrim and pain medications with plans to follow up with Urology. She did not follow up. The pain was intermittent and worsened over the last several days. Now with fevers, worsening flank pain and nausea and vomiting. In the ER, she was noted to have a urinalysis with pyuria, white count of 17,000. She had a CAT scan of her abdomen and pelvis that showed a right ureteral stone. She also has a density between the inferior vena cava and the uncinate process of the pancreas. She notes nausea as well and flank pain. Her past medical history is notable for renal calculi. SURGICAL HISTORY: , tonsillectomy. She is status post gastric sleeve. She has a history of nephrolithiasis. In the past, she had laser lithotripsy before. She has no known drug allergies. Her medications as an outpatient include the Bactrim, which she completed. She was taking oxycodone for pain. SOCIAL HISTORY: She lives with her kids. She sometimes smokes a cigarette. Social alcohol use. No substance use. She is currently not working. She has no history of any travel. REVIEW OF SYSTEMS: There is no cough or shortness of breath. Her only complaints are the flank pain and nausea with fevers and chills. PHYSICAL EXAMINATION: Vital Signs: Her T-max is 103.1, Temperature of 98.7. Pulse 96. Blood pressure 105/61. Respiratory rate 20. Saturating 97% on room air. HEENT: Normocephalic. Eyes are anicteric. Neck: Supple. Lungs: Clear to auscultation. Heart: Regular rate and rhythm. Abdomen: Soft. She has right CVA tenderness. Good bowel sounds. Extremities: Without edema. LABORATORY DATA: White count 17.7, hemoglobin 12.1, platelets 264. Chemistries are normal except for a glucose of 129, lactic acid 1.9. Urinalysis has 2+ leukocytes with 740 white cells. Urine and blood cultures are growing gram-negative rods. CAT scan findings are as previously stated. In summary, this is a 34-year-old woman with gram-negative bacteremia on the basis of UTI secondary to obstructive uropathy and nephrolithiasis. She has right hydronephrosis. There is a question of an abdominal mass, history of gastric sleeve in the past. Would continue Zosyn for now. No history of multidrug resistant organisms. Urology consult for stent placement to relieve obstruction. Further recommendations to follow. The case was discussed with the primary doctor. MOSES BLAIR M.D. [id number]
[2019-12-20 12:39] LABS: ALBUMIN 2.9 g/dl (3.4-5.0); BILIRUBIN,TOTAL 0.5 mg/dL (0.2-1); BLOOD UREA NITROGEN 6.3 mg/dL (7-18); CALCIUM 8.8 mg/dL (8.5-10.1); CREATININE 0.5 mg/dL (0.55-1.3); POTASSIUM 3.5 mmol/L (3.5-5.1); TOT PROT 6.5 g/dl (6.4-8.2)
--- NOTE | 2019-12-20 13:41 | PN ---
Progress Note, Physician - Current Medication List Current Medications: Active Medications Piperacillin Sod/Tazobactam (Sod 4.5 gm/ Dextrose) 100 mls @ 200 mls/hr IVPB Q8H-IV FORTINO; Protocol Last Admin: 12/20/19 09:26 Dose: 200 mls/hr Documented by: Morphine Sulfate (Morphine Sulfate) 2 mg IVPUSH Q4H PRN PRN Reason: PAIN LEVEL 6-10 Last Admin: 12/20/19 10:29 Dose: 2 mg Documented by: - Objective Vital Signs: Vital Signs Temperature 98.7 F 12/20/19 10:00 Pulse Rate 62 12/20/19 10:00 Respiratory Rate 20 12/20/19 10:00 Blood Pressure 128/81 12/20/19 10:00 O2 Sat by Pulse Oximetry (%) 98 12/20/19 10:00 Respiratory: Yes: Regular, CTA Bilaterally Gastrointestinal: Yes: Normal Bowel Sounds, Soft, Tenderness Labs: CBC, BMP 12/20/19 10:35 12/20/19 10:35 Problem List - Problems (1) Fever Assessment/Plan: Microbiology 12/18/19 08:20 Urine - Urine Clean Catch Urine Culture - Final Klebsiella Pneumoniae 12/18/19 09:10 Blood - Peripheral Venous Blood Culture - Preliminary Lactose Fermenting Neg Bacilli 12/18/19 09:10 Blood - Peripheral Venous Blood Culture - Preliminary Lactose Fermenting Neg Bacilli 12/19/19 14:00 Urine - Urine, Via Cystoscope Urine Culture - Final NO GROWTH OBTAINED - IV ABX ID CONSULT UROLOGY CONSULT IVF Code(s): R50.9 - FEVER, UNSPECIFIED (2) Hydronephrosis due to obstruction of ureter Assessment/Plan: UROLOGY CONSULT--noted ABX AND FLUIDS PAIN CONTROL Code(s): N13.2 - HYDRONEPHROSIS WITH RENAL AND URETERAL CALCULOUS OBSTRUCTION
[2019-12-20] MEDS ORDERED: KETOROLAC TROMETHAMINE 30 MG/1 ML VIAL IM PRN (13:46)
--- NOTE | 2019-12-20 14:06 | PN ---
Progress Note (short form) - Note Progress Note: 34F s/p cystoscopy with ureteral stent under GA. No new c/o. Vital Signs Temp 98.7 F 12/20/19 10:00 Pulse 62 12/20/19 10:00 Resp 20 12/20/19 10:00 BP 128/81 12/20/19 10:00 Pulse Ox 98 12/20/19 10:00 Intake & Output 12/19/19 12/20/19 12/20/19 23:59 11:59 23:59 Intake Total 100 Output Total 1100 Balance -1000 Intake: IV 100 Output: Urine 1100 Other: Voiding Method Toilet Toilet CBC, BMP 12/20/19 10:35 12/20/19 10:35 - No anesthesia complications - Continue current analgesic regimen
[2019-12-20] MEDS ORDERED: ONDANSETRON 4 MG/2 ML VIAL IVPB PRN (15:12)
[2019-12-20] MEDS: oxyCODONE HCL 5 MG TABLET PO PRN ×2 (18:04→22:13)
[2019-12-20] MEDS: ACETAMINOPHEN 325 MG TABLET (FP) PO PRN (18:05)
[2019-12-21] MEDS ORDERED: DEXTROSE 5%-WATER 100 ML IVPB ONE ×3 (01:35→17:28)
[2019-12-21] MEDS ORDERED: PIPERACILLIN/TAZOBACTAM 4.5 GM VIAL IVPB ONE ×2 (01:35→09:27)
[2019-12-21] MEDS: PIPERACILLIN/TAZOB 4.5 GM 4.5 GM in DEXTROSE 5%-WATER 100 ML IVPB SCH ×2 (01:44→09:29)
[2019-12-21] MEDS: oxyCODONE HCL 5 MG TABLET PO PRN ×4 (06:28→21:53)
[2019-12-21 08:41] LABS: BASO % 0.3 % (0-2.0); EOS % 3.1 % (0-4.5); HEMATOCRIT 33.4 % (32.4-45.2); HEMOGLOBIN 10.6 GM/dL (10.7-15.3); LYMPH % 25.6 % (8-40); MCH 26.5 pg (25.7-33.7); MCHC 31.8 g/dl (32.0-36.0); MEAN CELL VOLUME 83.3 fl (80-96); MEAN PLT VOLUME 8.3 fl (7.5-11.1); MONO % 5.7 % (3.8-10.2); NEUT % 65.3 % (42.8-82.8); PLATELET COUNT 294 K/MM3 (134-434); RBC 4.01 M/mm3 (3.60-5.2); RDW 14.2 % (11.6-15.6); WHITE BLOOD COUNT 11.2 K/mm3 (4.0-10.0)
[2019-12-21 09:04] LABS: ALBUMIN 2.6 g/dl (3.4-5.0); BILIRUBIN,TOTAL 0.3 mg/dL (0.2-1); BLOOD UREA NITROGEN 8.2 mg/dL (7-18); CALCIUM 8.8 mg/dL (8.5-10.1); CREATININE 0.6 mg/dL (0.55-1.3); POTASSIUM 3.2 mmol/L (3.5-5.1)
[2019-12-21] MEDS ORDERED: POTASSIUM CHLORIDE TABS 20 MEQ TABLET.ER (FP) PO ONE ×2 (09:34→10:45)
--- NOTE | 2019-12-21 09:35 | PN ---
Progress Note, Physician - Current Medication List Current Medications: Active Medications Acetaminophen (Tylenol -) 325 mg PO Q4H PRN PRN Reason: PAIN LEVEL 1-10 Stop: 12/23/19 17:59 Last Admin: 12/20/19 18:05 Dose: 325 mg Documented by: Piperacillin Sod/Tazobactam (Sod 4.5 gm/ Dextrose) 100 mls @ 200 mls/hr IVPB Q8H-IV FORTINO; Protocol Last Admin: 12/21/19 09:29 Dose: 200 mls/hr Documented by: Ketorolac Tromethamine (Toradol Injection -) 30 mg IM Q4H PRN PRN Reason: PAIN- Stop: 12/25/19 13:45 Ondansetron HCl (Zofran Injection) 4 mg IVPB Q8H PRN PRN Reason: NAUSEA AND/OR VOMITING Last Admin: 12/20/19 15:17 Dose: 4 mg Documented by: Oxycodone HCl (Roxicodone -) 5 mg PO Q4H PRN PRN Reason: PAIN LEVEL 1-10 Last Admin: 12/21/19 06:28 Dose: 5 mg Documented by: Potassium Chloride (K-Dur -) 40 meq PO ONCE ONE Stop: 12/21/19 09:35 - Objective Vital Signs: Vital Signs Temperature 98.7 F 12/21/19 06:56 Pulse Rate 66 12/21/19 06:56 Respiratory Rate 20 12/21/19 06:56 Blood Pressure 127/72 12/21/19 06:56 O2 Sat by Pulse Oximetry (%) 93 L 12/21/19 06:56 Cardiovascular: Yes: Regular Rate and Rhythm Respiratory: Yes: Regular, CTA Bilaterally Gastrointestinal: Yes: Normal Bowel Sounds, Soft, Tenderness (less) Labs: CBC, BMP 12/21/19 07:48 12/21/19 07:48 Problem List - Problems (1) Fever Assessment/Plan: Microbiology 12/18/19 08:20 Urine - Urine Clean Catch Urine Culture - Final Klebsiella Pneumoniae 12/18/19 09:10 Blood - Peripheral Venous Blood Culture - Preliminary Lactose Fermenting Neg Bacilli 12/18/19 09:10 Blood - Peripheral Venous Blood Culture - Preliminary Lactose Fermenting Neg Bacilli 12/19/19 14:00 Urine - Urine, Via Cystoscope Urine Culture - Final NO GROWTH OBTAINED - IV ABX ID CONSULT UROLOGY CONSULT IVF Code(s): R50.9 - FEVER, UNSPECIFIED (2) Hydronephrosis due to obstruction of ureter Assessment/Plan: UROLOGY CONSULT--noted ABX AND FLUIDS PAIN CONTROL Code(s): N13.2 - HYDRONEPHROSIS WITH RENAL AND URETERAL CALCULOUS OBSTRUCTION (3) Sepsis Assessment/Plan: as above Code(s): A41.9 - SEPSIS, UNSPECIFIED ORGANISM
[2019-12-21] MEDS: ACETAMINOPHEN 325 MG TABLET (FP) PO PRN ×2 (10:30→15:41)
--- NOTE | 2019-12-21 14:22 | CON.GI ---
Consult Consult Specialty:: GI Referred by:: Dr. Mishra Reason for Consultation:: Abnormal finding on CT scan that may have been present from 2008 - History of Present Illness Chief Complaint: Kidney stones History of Present Illness: 34F admitted for treatment of pyelonephritis. Has hydronephrosis. had a right renal stone removed and a stent placed. Noted bacteremic. Incidental finding on imaging studies of a 5 x 3.7 x 2.3cm low attentuiation mass like density interposed between the IVC and uncinate process of the pancreas. Per radiologist, upon review of previous studies, it may have been present from 2008 and appears unchanged. No abdominal pain. No family history of cancer. Had EGD [address] Brown Dawson: revealed distal esophagitis. Has a Lap Band in place. - History Source History Provided By: Patient, Medical Record Limitations to Obtaining History: No Limitations - Past Medical History Renal/: Yes: Renal Calculi ...LMP: 12/15/19 ...: No Endocrine: Yes: Other (Obesity) Additional Medical History: Obesity - Past Surgical History Past Surgical History: Yes: (x2), Tonsillectomy (Adenoidectomy) Additional Surgical History: Lap Band - Alcohol/Substance Use Hx Alcohol Use: No History of Substance Use: reports: None - Smoking History Smoking history: Never smoked Have you smoked in the past 12 months: No Aproximately how many cigarettes per day: 1 - Social History ADL: Independent Occupation: [employer] of : [employer] History of Recent Travel: No Home Medications - Allergies Allergies/Adverse Reactions: Allergies Allergy/AdvReac Type Severity Reaction Status Date / Time No Known Drug Allergies Allergy Verified 12/18/19 07:34 - Home Medications Home Medications: Ambulatory Orders Acetaminophen [Tylenol .Regular Strength -] 650 mg PO Q6H PRN tablet 03/28/17 Hydrocodone/Acetaminophen [Vicodin 5-300 mg Tablet] 1 each PO QID PRN 5 Days #20 tablet MDD 4 03/28/17 Pantoprazole Sodium [Protonix -] 40 mg PO BID #60 tablet.ec 03/28/17 Sucralfate Oral Suspension [Carafate Oral Suspension -] 1 gm PO QID #300 ml 03/28/17 Acetaminophen 325 mg PO PRN #30 tablet 11/29/19 Ibuprofen 600 mg PO QID PRN #20 tablet 11/29/19 Ondansetron HCl [Zofran] 4 mg PO TID PRN #9 tablet 11/29/19 Oxycodone HCl 10 mg PO TID PRN #10 tablet MDD 3 11/29/19 Sulfamethoxazole/Trimethoprim [Bactrim Ds -] 1 tab PO BID 3 Days #6 tablet 12/09/19 Family Medical History Other Family History: Mother: Healthy. Father: Healthy. 6 brothers, 10 sisters: healthy. 2 daughters: healthy. No family history of cancer Review of Systems - Review of Systems Constitutional: denies: Chills, Loss of Appetite, Unintentional Wgt. Loss Cardiovascular: denies: Chest Pain Respiratory: denies: Cough Gastrointestinal: denies: Abdominal Pain Physical Exam-GI Vital Signs: Vital Signs Temperature 97.9 F 12/21/19 13:42 Pulse Rate 80 12/21/19 13:42 Respiratory Rate 20 12/21/19 13:42 Blood Pressure 110/70 12/21/19 13:42 O2 Sat by Pulse Oximetry (%) 96 12/21/19 13:42 Constitutional: Yes: Calm Eyes: No: Sclera Icterus Cardiovascular: Yes: Regular Rate and Rhythm Respiratory: Yes: CTA Bilaterally Gastrointestinal Inspection: Yes: Scars (horizontal scar in right upper paramedian abdomen with palpable lap band port, + pelvic scar) ...Auscultate: Yes: Normoactive Bowel Sounds ...Palpate: Yes: Soft. No: Hepatomegaly, Splenomegaly, Tenderness ...Percussion: No: Tympanitic Edema: No (No LE edema) Neurological: Yes: Alert Labs: CBC, BMP 12/21/19 07:48 12/21/19 07:48 Problem List - Problems (1) Abnormal magnetic resonance imaging of abdomen Assessment/Plan: Unclear what that finding on previous non contrast imaging studies represents Ordered MRI of the abdomen with and without contrast. Other recommendations pending results of MRI. If MRIU cannot be done as inpatient, can be pursued as inpatient. If body habitus does not allow for MRI, CT abdomen with contrast. Code(s): R93.5 - ABN FINDINGS ON DX IMAGING OF ABD REGIONS, INC RETROPERITON
--- NOTE | 2019-12-21 17:31 | PN ---
Progress Note (short form) - Note Progress Note: c/o severe pain when she urinates s/p stent placement Friday Vital Signs Period Temp Pulse Resp BP Sys/Salcedo Pulse Ox Last 24 Hr 97.9 F-99.2 F 66-96 18-20 90-134/56-93 93-97 cor-rrr llungs decreased bs at bases abd soft,no rebound, RIght flank tenderness to palpation ext no edema CBC, BMP 12/21/19 07:48 12/21/19 07:48 Microbiology 12/18/19 09:10 Blood - Peripheral Venous Blood Culture - Final Lactose Fermenting Neg Bacilli 12/18/19 09:10 Blood - Peripheral Venous Blood Culture - Final Klebsiella Pneumoniae 12/18/19 08:20 Urine - Urine Clean Catch Urine Culture - Final Klebsiella Pneumoniae 12/19/19 14:00 Urine - Urine, Via Cystoscope Urine Culture - Final NO GROWTH OBTAINED imp/reccd GRAM NEGATIVE BACTEREMIA -klebsiella resistant to zosyn!, switch to ceftriaxone OBSTRUCTIVE UROPATHY SECONDAY TO nephrolithiasis-s/p stent ABDOMINAL MASS- for MRI HISTORY OF GASTRIC SLEEVE urology f/u for stent pain Problem List - Problems (1) Gram-negative bacteremia Code(s): R78.81 - BACTEREMIA (2) UTI (urinary tract infection) Code(s): N39.0 - URINARY TRACT INFECTION, SITE NOT SPECIFIED (3) Hydronephrosis due to obstruction of ureter Code(s): N13.2 - HYDRONEPHROSIS WITH RENAL AND URETERAL CALCULOUS OBSTRUCTION (4) Right nephrolithiasis Code(s): N20.0 - CALCULUS OF KIDNEY (5) Abnormal CT of the abdomen Code(s): R93.5 - ABN FINDINGS ON DX IMAGING OF ABD REGIONS, INC RETROPERITON
[2019-12-21] MEDS: CEFTRIAXONE 2 GM in DEXTROSE 5%-WATER 100 ML IVPB SCH (17:42)
--- NOTE | 2019-12-21 21:55 | CONSULT ---
Consult Consult Specialty:: Endocrine Referred by:: Dr.Iyad Field Reason for Consultation:: Kidney Stones - History of Present Illness Chief Complaint: rt sided pain History of Present Illness: 34F with PMH of kidney stones, c-sections x2, and obesity admitted with right flank/back pain that occasionally radiates to the groin, She reports abdominal pain. Denies nausea, vomiting, dysuria, hematuria, abnormal vaginal bleeding or weight loss.had a recent evaluation for same pain - Past Medical History Renal/: Yes: Renal Calculi ...LMP: 12/15/19 ...: No Endocrine: Yes: Other (Obesity) Additional Medical History: Obesity - Past Surgical History Past Surgical History: Yes: (x2), Tonsillectomy (Adenoidectomy) Additional Surgical History: Lap Band - Alcohol/Substance Use Hx Alcohol Use: No History of Substance Use: reports: None - Smoking History Smoking history: Never smoked Have you smoked in the past 12 months: No Aproximately how many cigarettes per day: 1 - Social History ADL: Independent 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 History of Recent Travel: No Home Medications - Allergies Allergies/Adverse Reactions: Allergies Allergy/AdvReac Type Severity Reaction Status Date / Time No Known Drug Allergies Allergy Verified 12/18/19 07:34 - Home Medications Home Medications: Ambulatory Orders Acetaminophen [Tylenol .Regular Strength -] 650 mg PO Q6H PRN tablet 03/28/17 Hydrocodone/Acetaminophen [Vicodin 5-300 mg Tablet] 1 each PO QID PRN 5 Days #20 tablet MDD 4 03/28/17 Pantoprazole Sodium [Protonix -] 40 mg PO BID #60 tablet.ec 03/28/17 Sucralfate Oral Suspension [Carafate Oral Suspension -] 1 gm PO QID #300 ml 03/28/17 Acetaminophen 325 mg PO PRN #30 tablet 11/29/19 Ibuprofen 600 mg PO QID PRN #20 tablet 11/29/19 Ondansetron HCl [Zofran] 4 mg PO TID PRN #9 tablet 11/29/19 Oxycodone HCl 10 mg PO TID PRN #10 tablet MDD 3 11/29/19 Sulfamethoxazole/Trimethoprim [Bactrim Ds -] 1 tab PO BID 3 Days #6 tablet 12/09/19 Family Medical History Other Family History: Mother: Healthy. Father: Healthy. 6 brothers, 10 sisters: healthy. 2 daughters: healthy. No family history of cancer Review of Systems - Review of Systems Constitutional: reports: Lethargy, Loss of Appetite, Malaise HENT: reports: No Symptoms Neck: reports: No Symptoms Cardiovascular: reports: Shortness of Breath Respiratory: reports: Exercise Intolerance, SOB Gastrointestinal: reports: Bloating, Indigestion, Nausea Genitourinary: reports: Frequency Breasts: reports: No Symptoms Reported Musculoskeletal: reports: Joint Pain Neurological: reports: No Symptoms Physical Exam Vital Signs: Vital Signs Temperature 99.2 F 12/21/19 16:53 Pulse Rate 67 12/21/19 16:53 Respiratory Rate 20 12/21/19 16:53 Blood Pressure 134/93 12/21/19 16:53 O2 Sat by Pulse Oximetry (%) 96 12/21/19 13:42 Labs: CBC, BMP 12/21/19 07:48 12/21/19 07:48 Problem List - Problems (1) Abnormal magnetic resonance imaging of abdomen Problems reviewed: Yes Code(s): R93.5 - ABN FINDINGS ON DX IMAGING OF ABD REGIONS, INC RETROPERITON (2) Fever Code(s): R50.9 - FEVER, UNSPECIFIED (3) Flank pain Code(s): R10.9 - UNSPECIFIED ABDOMINAL PAIN (4) Gram-negative bacteremia Code(s): R78.81 - BACTEREMIA (5) Hydronephrosis due to obstruction of ureter Code(s): N13.2 - HYDRONEPHROSIS WITH RENAL AND URETERAL CALCULOUS OBSTRUCTION (6) Right nephrolithiasis Code(s): N20.0 - CALCULUS OF KIDNEY (7) UTI (urinary tract infection) Code(s): N39.0 - URINARY TRACT INFECTION, SITE NOT SPECIFIED (8) section Code(s): Z98.89 - OTHER SPECIFIED POSTPROCEDURAL STATES * DO NOT USE * Assessment/Plan Current Active Problems Abnormal magnetic resonance imaging of abdomen (Acute) Fever (Acute) Flank pain (Acute) Gram-negative bacteremia (Acute) Hydronephrosis due to obstruction of ureter (Acute) Right nephrolithiasis (Acute) UTI (urinary tract infection) (Acute) Abnormal Lab Results 12/21/19 12/21/19 07:48 07:48 WBC 11.2 H Hgb 10.6 L MCHC 31.8 L Potassium 3.2 L Anion Gap 7 L AST 12 L Total Protein 6.0 L Albumin 2.6 L Laboratory Results - last 24 hr 12/21/19 12/21/19 07:48 07:48 WBC 11.2 H RBC 4.01 Hgb 10.6 L Hct 33.4 MCV 83.3 MCH 26.5 MCHC 31.8 L RDW 14.2 Plt Count 294 D MPV 8.3 Absolute Neuts (auto) 7.3 Neutrophils % 65.3 Lymphocytes % 25.6 D Monocytes % 5.7 Eosinophils % 3.1 D Basophils % 0.3 Nucleated RBC % 0 Sodium 142 Potassium 3.2 L Chloride 105 Carbon Dioxide 29 Anion Gap 7 L BUN 8.2 Creatinine 0.6 Est GFR (CKD-EPI)AfAm 139.78 Est GFR (CKD-EPI)NonAf 120.61 Random Glucose 106 Calcium 8.8 Total Bilirubin 0.3 AST 12 L ALT 17 Alkaline Phosphatase 92 Total Protein 6.0 L Albumin 2.6 L plan: uric acid pth intact stone analysis tsh / free t4 ivfluid rehydration mr abdomen
[2019-12-21] MEDS ORDERED: PT OWN MED DRAWER 7, Y5N ONE (23:06)
[2019-12-22] MEDS: oxyCODONE HCL 5 MG TABLET PO PRN ×2 (02:58→08:53)
[2019-12-22] MEDS ORDERED: PT OWN MED DRAWER 7, Y5N ONE (05:47)
[2019-12-22] MEDS: ACETAMINOPHEN 325 MG TABLET (FP) PO PRN (05:49)
--- NOTE | 2019-12-22 06:07 | PN.GI ---
GI Progress Note - Objective Vital Signs: Vital Signs Temperature 98.4 F 12/21/19 21:00 Pulse Rate 78 12/21/19 21:00 Respiratory Rate 18 12/21/19 21:00 Blood Pressure 102/56 L 12/21/19 21:00 O2 Sat by Pulse Oximetry (%) 99 12/21/19 21:00 Labs: CBC, BMP 12/21/19 07:48 12/21/19 07:48
--- NOTE | 2019-12-22 08:49 | PN ---
Progress Note, Physician - Current Medication List Current Medications: Active Medications Acetaminophen (Tylenol -) 325 mg PO Q4H PRN PRN Reason: PAIN LEVEL 1-10 Stop: 12/23/19 17:59 Last Admin: 12/22/19 05:49 Dose: 325 mg Documented by: Ceftriaxone Sodium 2 gm/ (Dextrose) 100 mls @ 200 mls/hr IVPB DAILY FORTINO; Protocol Last Admin: 12/21/19 17:42 Dose: 200 mls/hr Documented by: Ketorolac Tromethamine (Toradol Injection -) 30 mg IM Q4H PRN PRN Reason: PAIN- Stop: 12/25/19 13:45 Ondansetron HCl (Zofran Injection) 4 mg IVPB Q8H PRN PRN Reason: NAUSEA AND/OR VOMITING Last Admin: 12/20/19 15:17 Dose: 4 mg Documented by: Oxycodone HCl (Roxicodone -) 5 mg PO Q4H PRN PRN Reason: PAIN LEVEL 1-10 Last Admin: 12/22/19 02:58 Dose: 5 mg Documented by: - Objective Vital Signs: Vital Signs Temperature 100.5 F H 12/22/19 05:00 Pulse Rate 72 12/22/19 05:00 Respiratory Rate 18 12/22/19 05:00 Blood Pressure 120/65 12/22/19 05:00 O2 Sat by Pulse Oximetry (%) 98 12/22/19 05:00 Cardiovascular: Yes: Regular Rate and Rhythm Respiratory: Yes: Regular, CTA Bilaterally Gastrointestinal: Yes: Normal Bowel Sounds, Soft. No: Tenderness Labs: CBC, BMP 12/21/19 07:48 12/21/19 07:48 Problem List - Problems (1) Fever Assessment/Plan: Microbiology 12/18/19 09:10 Blood - Peripheral Venous Blood Culture - Final Lactose Fermenting Neg Bacilli 12/18/19 09:10 Blood - Peripheral Venous Blood Culture - Final Klebsiella Pneumoniae 12/18/19 08:20 Urine - Urine Clean Catch Urine Culture - Final Klebsiella Pneumoniae 12/19/19 14:00 Urine - Urine, Via Cystoscope Urine Culture - Final NO GROWTH OBTAINED - IV ABX ID CONSULT UROLOGY CONSULT IVF Code(s): R50.9 - FEVER, UNSPECIFIED (2) Hydronephrosis due to obstruction of ureter Assessment/Plan: UROLOGY CONSULT--noted ABX AND FLUIDS PAIN CONTROL Code(s): N13.2 - HYDRONEPHROSIS WITH RENAL AND URETERAL CALCULOUS OBSTRUCTION (3) Abdominal mass Assessment/Plan: mri Code(s): R19.00 - INTRA-ABD AND PELVIC SWELLING, MASS AND LUMP, UNSP SITE (4) Sepsis Assessment/Plan: as above Code(s): A41.9 - SEPSIS, UNSPECIFIED ORGANISM
[2019-12-22] MEDS ORDERED: DEXTROSE 5%-WATER 100 ML IVPB ONE (08:51)
[2019-12-22] MEDS: CEFTRIAXONE 2 GM in DEXTROSE 5%-WATER 100 ML IVPB SCH (09:03)
[2019-12-22 10:31] VITALS: BP 125/68; PULSE 70; TEMP 99
--- NOTE | 2019-12-22 12:15 | PN ---
DATE OF VISIT: DATE OF DICTATION: 12/21/2019 Patient is a 34-year-old female who was admitted via the emergency room on December 18, 2019, with fever, right hydronephrosis secondary to a stone and right flank pain. On December 18 she underwent cystoscopy, right ureteroscopy, laser lithotripsy and placement of a JJ stent. Presently her white count is 11,200. Her T-max is 99.2, blood pressure 134/90, pulse 67, respirations 20. Urine culture prior to the procedure grew out Klebsiella pneumoniae. After the procedure urine culture is negative. Presently the patient complains of fever. Her BUN is 8.2 and creatinine 0.6. Would recommend a repeat renal ultrasound to rule out hydronephrosis. Otherwise, must search for other source of fever. ODALYS MONTEZ M.D. [id number]
--- NOTE | 2019-12-22 16:47 | PATH ---
Surgical Pathology Report Patient Name: YULY GARCIA Med. Rec. #: [id number] /Age/Gender: 1985 (Age: 34) / F Account: [id number] Location: [facility] MED/SURG Taken: 12/19/2019 Received: 12/21/2019 Reported: 12/22/2019 Physicians: Nikos York M.D. Specimen(s) Received RIGHT KIDNEY STONE Clinical History Pyelonephritis Final Diagnosis KIDNEY STONE, RIGHT, REMOVAL: RENAL CALCULI. MACROSCOPIC DIAGNOSIS. Electronically Signed Xenia Agarwal M.D. Gross Description Received fresh labeled "right kidney stone," is a 0.5 cm in greatest dimension doll-white, irregular calculus which is sent for chemical analysis. /12/21/[facility]21/[facility]
[2020-01-02 14:12] LABS: CALCIUM CARBONATE 65; WEIGHT 36 mg
== END 2019-12-22 13:33 | disposition left against medical advice (07) | DRG 446 ==
LOC: JER 07:30 → JERBED 14:30 → J8W 12-19 00:46 → J7W 12-21 20:25
PROVIDERS: ADMIT Internal Medicine; ATTEND Family Medicine
PROC: 0T768DZ Dilation of Right Ureter with Intraluminal Device, Via Natural or Artificial Opening Endoscopic (ICD-10-PCS; 2019-12-19)
PROC: BT1DZZZ Fluoroscopy of Right Kidney, Ureter and Bladder (ICD-10-PCS; 2019-12-19)
PROC: 0TC68ZZ Extirpation of Matter from Right Ureter, Via Natural or Artificial Opening Endoscopic (ICD-10-PCS; principal; 2019-12-19 11:00)
DX: N13.6 Pyonephrosis (principal); D72.829 Elevated white blood cell count, unspecified; E87.6 Hypokalemia; E66.9 Obesity, unspecified; Z68.37 Body mass index [BMI] 37.0-37.9, adult; R19.00 Intra-abdominal and pelvic swelling, mass and lump, unspecified site; R50.9 Fever, unspecified; N81.10 Cystocele, unspecified; B96.1 Klebsiella pneumoniae [K. pneumoniae] as the cause of diseases classified elsewhere; K81.9 Cholecystitis, unspecified; Z16.11 Resistance to penicillins; Z98.84 Bariatric surgery status; R78.81 Bacteremia
CPT/HCPCS: 36415; 71045-TC-FY; 74019-TC-FY; 74176-TC; 76000-TC-FY; 76775; 76775-TC; 76856-TC; 80053; 81003; 82360; 82803; 83605; 83690; 84703; 85025; 86850; 86900; 86901; 87040; 87086; 87186; 88300-TC; 93005; 93010; 94760; 99285-25; J0131; U0003

== ENCOUNTER 2019-12-22 14:38 | Inpatient (IN) | payer OTHER ==
[2019-12-22 14:46] VITALS: BMI 39.0
--- NOTE | 2019-12-22 15:54 | PDOC ---
History of Present Illness - General Chief Complaint: Revisit, Lab Variance Stated Complaint: FOLLOW-UP Time Seen by Provider: 12/22/19 15:32 Past History - Travel History Traveled outside of the country in the last 30 days: No Close contact w/someone who was outside of country & ill: No - Medical History Allergies/Adverse Reactions: Allergies Allergy/AdvReac Type Severity Reaction Status Date / Time No Known Drug Allergies Allergy Verified 12/22/19 14:46 Home Medications: Ambulatory Orders Acetaminophen [Tylenol .Regular Strength -] 650 mg PO Q6H PRN tablet 03/28/17 Hydrocodone/Acetaminophen [Vicodin 5-300 mg Tablet] 1 each PO QID PRN 5 Days #20 tablet MDD 4 03/28/17 Pantoprazole Sodium [Protonix -] 40 mg PO BID #60 tablet.ec 03/28/17 Sucralfate Oral Suspension [Carafate Oral Suspension -] 1 gm PO QID #300 ml 03/28/17 Acetaminophen 325 mg PO PRN #30 tablet 11/29/19 Ibuprofen 600 mg PO QID PRN #20 tablet 11/29/19 Ondansetron HCl [Zofran] 4 mg PO TID PRN #9 tablet 11/29/19 Oxycodone HCl 10 mg PO TID PRN #10 tablet MDD 3 11/29/19 Sulfamethoxazole/Trimethoprim [Bactrim Ds -] 1 tab PO BID 3 Days #6 tablet 12/09/19 Asthma: No Cancer: No Cardiac Disorders: No COPD: No Diabetes: No HTN: No Kidney Stones: Yes Seizures: No Thyroid Disease: No - Surgical History Abdominal Surgery: Yes (LAP BAND 2011, TIGHTENING 09/08/14) - Reproductive History Is Patient Now?: No - Immunization History Immunization Up to Date: Yes - Psycho-Social/Smoking History Smoking History: Current some day smoker Have you smoked in the past 12 months: No Number of Cigarettes Smoked Daily: 2 Information on smoking cessation initiated: No - Substance Abuse Hx (Audit-C & DAST Scrn) How often the patient has a drink containing alcohol: Never Score: In Men: 4 or > Positive; In Women: 3 or > Positive: 0 Screen Result (Pos requires Nsg. Audit-10AR): Negative In the last yr the pt used illegal drug/Rx for NonMed reason: No Score: Yes response is considered Positive: 0 Screen Result (Positive result requires Nsg. DAST-10): Negative Review of Systems - Review of Systems Able to Perform ROS?: Yes Comments:: 12/22/19 15:54 CONSTITUTIONAL: Absent: fever, chills, diaphoresis, generalized weakness, malaise, loss of appetite HEENT: Absent: rhinorrhea, nasal congestion, throat pain, throat swelling, difficulty swallowing, mouth swelling, ear pain, eye pain, visual Changes CARDIOVASCULAR: Absent: chest pain, loss of consciousness, palpitations, irregular heart rate, peripheral edema RESPIRATORY: Absent: cough, shortness of breath, dyspnea with exertion, orthopnea, wheezing, stridor, hemoptysis GASTROINTESTINAL: Absent: abdominal pain, abdominal distension, nausea, vomiting, diarrhea, constipation, melena, hematochezia GENITOURINARY: Absent: dysuria, frequency, urgency, hesitancy, hematuria, flank pain, genital pain MUSCULOSKELETAL: Absent: myalgia, arthralgia, joint swelling SKIN: Absent: rash, itching, pallor HEMATOLOGIC/IMMUNOLOGIC: Absent: easy bleeding, easy bruising, lymphadenopathy, frequent infections ENDOCRINE: Absent: unexplained weight gain, unexplained weight loss, heat intolerance, cold intolerance NEUROLOGIC: Absent: headache, focal weakness or paresthesias, dizziness, unsteady gait, seizure, mental status changes, bladder or bowel incontinence PSYCHIATRIC: Absent: anxiety, depression, suicidal or homicidal ideation, hallucinations. Is the patient limited Niuean proficient: No *Physical Exam - Vital Signs Last Vital Signs Temp Pulse Resp BP Pulse Ox 98.7 F 94 H 16 122/75 100 12/22/19 14:41 12/22/19 14:41 12/22/19 14:41 12/22/19 14:41 12/22/19 14:41 - Physical Exam 12/22/19 15:54 GENERAL: Well developed, well nourished. Awake and alert. No acute distress. HEENT: Normocephalic, atraumatic. PERRLA, EOMI. No conjunctival pallor. Sclera are non- icteric. Moist mucous membranes. Oropharynx is clear. NECK: Supple. Full ROM. No JVD. Carotid pulses 2+ and symmetric, without bruits. No thyromegaly. No lymphadenopathy. CARDIOVASCULAR: Regular rate and rhythm. No murmurs, rubs, or gallops. Distal pulses are 2+ and symmetric. PULMONARY: No evidence of respiratory distress. Lungs clear to auscultation bilaterally. No wheezing, rales or rhonchi. ABDOMINAL: Soft. Non-tender. Non-distended. No rebound or guarding. No organomegaly. Normoactive bowel sounds. MUSCULOSKELETAL Normal range of motion at all joints. No bony deformities or tenderness. No CVA tenderness. EXTREMITIES: No cyanosis. No clubbing. No edema. No calf tenderness. SKIN: Warm and dry. Normal capillary refill. No rashes. No jaundice. NEUROLOGICAL: Alert, awake, appropriate. Cranial nerves 2-12 intact. No deficits to light touch and temperature in face, upper extremities and lower extremities. No motor deficits in the in face, upper extremities and lower extremities. Normoreflexic in the upper and lower extremities. Normal speech. Toes are down-going bilaterally. Gait is normal without ataxia. PSYCHIATRIC: Cooperative. Good eye contact. Appropriate mood and affect. Medical Decision Making - Medical Decision Making 12/22/19 15:55 Patient is a 34-year-old female who eloped from the hospital today after she was admitted since 12/18/2023+ blood cultures, infected kidney stones with hydronephrosis. She states that she left the hospital without telling anyone earlier because she was scheduled to go for an MRI and had clips in her wig. She states that she could not take the clips out herself so she left the hospital for someone could help her. She states she was gone for about half an hour. She states when she came back she was told that she had to reregister through the ER as she left the hospital. A/P: Admission for MRI given previous notes. PCP is Dr. Mishra, call placed for new admission orders We will draw basic labs and place a new IV. Found patient outside smoking a cigarette before my evaluation. She is now sitting in vertical. She states none of her symptoms have changed since she left the hospital. Discharge - Discharge Information Problems reviewed: Yes Clinical Impression/Diagnosis: Hydronephrosis due to obstruction of ureter, Renal stones - Admission Yes - Follow up/Referral Referrals: Herrera Doherty MD [Primary Care Provider] - - Patient Discharge Instructions - Post Discharge Activity
[2019-12-22 16:50] LABS: HEMATOCRIT 37.3 % (32.4-45.2); HEMOGLOBIN 12.1 GM/dL (10.7-15.3); MCH 26.9 pg (25.7-33.7); MCHC 32.4 g/dl (32.0-36.0); MEAN CELL VOLUME 83.2 fl (80-96); RBC 4.48 M/mm3 (3.60-5.2); RDW 14.7 % (11.6-15.6); WHITE BLOOD COUNT 10.8 K/mm3 (4.0-10.0)
[2019-12-22 17:14] LABS: BILIRUBIN,TOTAL 0.5 mg/dL (0.2-1); BLOOD UREA NITROGEN 6.2 mg/dL (7-18); CREATININE 0.7 mg/dL (0.55-1.3); POTASSIUM 5.2 mmol/L (3.5-5.1); TOT PROT 7.4 g/dl (6.4-8.2)
[2019-12-22] MEDS ORDERED: CEFTRIAXONE 2 GM-D5W BAG 2 GM/50 ML BAG IVPB SCH (17:15)
[2019-12-22 17:22] LABS: ANISOCYTOSIS 0; MACROCYTOSIS 0; PLATELET ESTIMATE NORMAL
[2019-12-22 18:17] LABS: PLATELET COUNT 385 K/MM3 (134-434)
[2019-12-22] MEDS ORDERED: CEFTRIAXONE 2 GM/100 ML BAG IVPB ONE (20:04)
[2019-12-22] MEDS ORDERED: MORPHINE SULFATE 2 MG/ML VIAL IVPUSH ONE (20:43)
[2019-12-22] MEDS ORDERED: MORPHINE SULFATE 2 MG/ML VIAL ONE (21:07)
[2019-12-22] MEDS ORDERED: HEPARIN NA (PORCINE) 5,000 UNITS/ML 1ML VIAL ONE (22:10)
[2019-12-22] MEDS: D5-1/2NS+20 MEQ KCL - 20 MEQ/1,000 ML INFUS.BAG IV SCH (22:21)
[2019-12-22] MEDS: HEPARIN NA (PORCINE) 5,000 UNITS/ML 1ML VIAL SQ SCH (22:21)
[2019-12-23] MEDS ORDERED: diphenhydrAMINE HCL 25 MG CAPSULE (FP) PO ONE ×2 (04:15→04:19)
[2019-12-23 07:15] LABS: BASO % 0.3 % (0-2.0); EOS % 2.5 % (0-4.5); HEMATOCRIT 38.1 % (32.4-45.2); HEMOGLOBIN 12.3 GM/dL (10.7-15.3); LYMPH % 29.7 % (8-40); MCH 26.8 pg (25.7-33.7); MCHC 32.2 g/dl (32.0-36.0); MEAN CELL VOLUME 83.2 fl (80-96); MEAN PLT VOLUME 8.1 fl (7.5-11.1); MONO % 10.6 % (3.8-10.2); NEUT % 56.9 % (42.8-82.8); PLATELET COUNT 339 K/MM3 (134-434); RBC 4.58 M/mm3 (3.60-5.2); RDW 14.7 % (11.6-15.6); WHITE BLOOD COUNT 8.1 K/mm3 (4.0-10.0)
[2019-12-23 07:40] LABS: ALBUMIN 2.9 g/dl (3.4-5.0); BILIRUBIN,TOTAL 0.2 mg/dL (0.2-1); BLOOD UREA NITROGEN 5.4 mg/dL (7-18); CALCIUM 8.8 mg/dL (8.5-10.1); CREATININE 0.5 mg/dL (0.55-1.3); POTASSIUM 3.5 mmol/L (3.5-5.1); TOT PROT 6.7 g/dl (6.4-8.2)
--- NOTE | 2019-12-23 09:07 | HP ---
Admitting History and Physical - Admission History of Present Illness: 34-year-old female who eloped from the hospital today after she was admitted since 12/18/2023+ blood cultures, infected kidney stones with hydronephrosis. She states that she left the hospital without telling anyone earlier because she was scheduled to go for an MRI and had clips in her wig. She states that she could not take the clips out herself so she left the hospital for someone could help her. She states she was gone for about half an hour. She states when she came back she was told that she had to reregister through the ER as she left the hospital. 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 History of Recent Travel: No Home Medications - Allergies Allergies/Adverse Reactions: Allergies Allergy/AdvReac Type Severity Reaction Status Date / Time No Known Drug Allergies Allergy Verified 12/22/19 14:46 - Home Medications Home Medications: Ambulatory Orders Acetaminophen [Tylenol .Regular Strength -] 650 mg PO Q6H PRN tablet 03/28/17 Hydrocodone/Acetaminophen [Vicodin 5-300 mg Tablet] 1 each PO QID PRN 5 Days #20 tablet MDD 4 03/28/17 Pantoprazole Sodium [Protonix -] 40 mg PO BID #60 tablet.ec 03/28/17 Sucralfate Oral Suspension [Carafate Oral Suspension -] 1 gm PO QID #300 ml 03/28/17 Acetaminophen 325 mg PO PRN #30 tablet 11/29/19 Ibuprofen 600 mg PO QID PRN #20 tablet 11/29/19 Ondansetron HCl [Zofran] 4 mg PO TID PRN #9 tablet 11/29/19 Oxycodone HCl 10 mg PO TID PRN #10 tablet MDD 3 11/29/19 Sulfamethoxazole/Trimethoprim [Bactrim Ds -] 1 tab PO BID 3 Days #6 tablet 12/09/19 Physical Examination Vital Signs: Vital Signs Temperature 98.2 F 12/23/19 06:42 Pulse Rate 102 H 12/23/19 06:42 Respiratory Rate 18 12/23/19 06:42 Blood Pressure 107/70 12/23/19 06:42 O2 Sat by Pulse Oximetry (%) 95 12/23/19 06:42 Cardiovascular: Yes: Regular Rate and Rhythm Respiratory: Yes: Regular, CTA Bilaterally Gastrointestinal: Yes: Normal Bowel Sounds, Soft, Tenderness Edema: No Neurological: Yes: Alert, Oriented Labs: CBC, BMP 12/23/19 05:30 12/23/19 05:30 Problem List - Problems (1) Gram-negative bacteremia Assessment/Plan: Microbiology 12/18/19 09:10 Blood - Peripheral Venous Blood Culture - Final Lactose Fermenting Neg Bacilli 12/18/19 09:10 Blood - Peripheral Venous Blood Culture - Final Klebsiella Pneumoniae 12/18/19 08:20 Urine - Urine Clean Catch Urine Culture - Final Klebsiella Pneumoniae ceftriaxone id consult Code(s): R78.81 - BACTEREMIA (2) Hydronephrosis due to obstruction of ureter Assessment/Plan: per urology Code(s): N13.2 - HYDRONEPHROSIS WITH RENAL AND URETERAL CALCULOUS OBSTRUCTION (3) Renal stones Code(s): N20.0 - CALCULUS OF KIDNEY (4) Abdominal mass Assessment/Plan: MRI Code(s): R19.00 - INTRA-ABD AND PELVIC SWELLING, MASS AND LUMP, UNSP SITE
[2019-12-23] MEDS: CEFTRIAXONE 2 GM in DEXTROSE 5%-WATER - 50 ML IVPB SCH (09:12)
[2019-12-23] MEDS: HEPARIN NA (PORCINE) 5,000 UNITS/ML 1ML VIAL SQ SCH ×2 (09:15→22:00)
[2019-12-23] MEDS ORDERED: FLUCONAZOLE 150 MG TABLET PO ONE (10:59)
[2019-12-23] MEDS: oxyCODONE HCL 5 MG TABLET PO PRN ×3 (11:28→23:59)
--- NOTE | 2019-12-23 13:46 | PN ---
Progress Note (short form) - Note Progress Note: readmitted last night- has left the hospital yesterda same flank pain Vital Signs Period Temp Pulse Resp BP Sys/Salcedo Pulse Ox Last 24 Hr 98.2 F-100.2 F 76-102 18-19 107-125/64-73 95-99 cor-rrr lungs clear abd soft,no distention +right flank pain ext no edema CBC, BMP 12/23/19 05:30 12/23/19 05:30 a/p klebsiella bacteremia secondary to UTI due to obstructing stone s/p stent day #3 ceftriaxone if patient remains afebrile, can switch to po levaquin for 7 days f/u with urology for stent/stone management f/u with PMD for question of abdominal mass- MRI ordered and pending
[2019-12-23] MEDS: D5-1/2NS+20 MEQ KCL - 20 MEQ/1,000 ML INFUS.BAG IV SCH (15:45)
[2019-12-23] MEDS: NICOTINE 14 MG/24 HOURS TOPICAL PATCH TD SCH (19:45)
[2019-12-23] MEDS ORDERED: MICONAZOLE NITRATE 2% VAGINAL CREAM 45 GM TUBE VG SCH (22:00)
[2019-12-24] MEDS: oxyCODONE HCL 5 MG TABLET PO PRN (06:22)
--- NOTE | 2019-12-24 08:48 | PN ---
Progress Note, Physician - Current Medication List Current Medications: Active Medications Heparin Sodium (Porcine) (Heparin -) 5,000 unit SQ BID [facility] Last Admin: 12/23/19 22:00 Dose: Not Given Documented by: Potassium Chloride/Dextrose/Sod Cl (D5-1/2ns+20 Meq Kcl -) 20 meq in 1,000 mls @ 75 mls/hr IV [facility] Last Admin: 12/23/19 15:45 Dose: 75 mls/hr Documented by: Ceftriaxone Sodium 2 gm/ (Dextrose) 50 mls @ 100 mls/hr IVPB DAILY [facility]; Protocol Last Admin: 12/23/19 09:12 Dose: 100 mls/hr Documented by: Miconazole Nitrate (Monistat-7 Vaginal Cream -) 1 applic VG HS [facility] Stop: 12/29/19 22:01 Last Admin: 12/23/19 22:04 Dose: 1 applic Documented by: Nicotine (Nicoderm Patch -) 14 mg TD DAILY [facility] Last Admin: 12/23/19 19:45 Dose: 14 mg Documented by: Oxycodone HCl (Roxicodone -) 5 mg PO Q6H PRN PRN Reason: PAIN LEVEL 6-10 Last Admin: 12/24/19 06:22 Dose: 5 mg Documented by: - Objective Vital Signs: Vital Signs Temperature 98.0 F 12/24/19 06:00 Pulse Rate 75 12/24/19 06:00 Respiratory Rate 18 12/24/19 06:00 Blood Pressure 151/91 12/24/19 06:00 O2 Sat by Pulse Oximetry (%) 99 12/24/19 06:00 Cardiovascular: Yes: Regular Rate and Rhythm Respiratory: Yes: Regular, CTA Bilaterally Gastrointestinal: Yes: Normal Bowel Sounds, Soft, Tenderness (LESS) Labs: CBC, BMP 12/23/19 05:30 12/23/19 05:30 Problem List - Problems (1) Gram-negative bacteremia Assessment/Plan: Microbiology 12/18/19 09:10 Blood - Peripheral Venous Blood Culture - Final Lactose Fermenting Neg Bacilli 12/18/19 09:10 Blood - Peripheral Venous Blood Culture - Final Klebsiella Pneumoniae 12/18/19 08:20 Urine - Urine Clean Catch Urine Culture - Final Klebsiella Pneumoniae ceftriaxone id consult Code(s): R78.81 - BACTEREMIA (2) Hydronephrosis due to obstruction of ureter Assessment/Plan: per urology Code(s): N13.2 - HYDRONEPHROSIS WITH RENAL AND URETERAL CALCULOUS OBSTRUCTION (3) Renal stones Code(s): N20.0 - CALCULUS OF KIDNEY (4) Abdominal mass Assessment/Plan: MRI OF ABDOMEN Code(s): R19.00 - INTRA-ABD AND PELVIC SWELLING, MASS AND LUMP, UNSP SITE
[2019-12-24 09:34] VITALS: BP 142/92; PULSE 82; TEMP 98.4
[2019-12-24] MEDS: HEPARIN NA (PORCINE) 5,000 UNITS/ML 1ML VIAL SQ SCH (12:54)
[2019-12-24] MEDS: CEFTRIAXONE 2 GM in DEXTROSE 5%-WATER - 50 ML IVPB SCH (12:54)
[2019-12-24] MEDS: NICOTINE 14 MG/24 HOURS TOPICAL PATCH TD SCH (12:58)
--- NOTE | 2019-12-24 14:18 | DS ---
Physical Examination Vital Signs: Vital Signs Temperature 98.4 F 12/24/19 09:33 Pulse Rate 82 12/24/19 09:33 Respiratory Rate 20 12/24/19 09:33 Blood Pressure 142/92 12/24/19 09:33 O2 Sat by Pulse Oximetry (%) 98 12/24/19 09:33 Labs: CBC, BMP 12/23/19 05:30 12/23/19 05:30 Discharge Summary Problems reviewed: Yes Reason For Visit: UROLITHIASIS Current Active Problems Hydronephrosis due to obstruction of ureter (Acute) Renal stones (Acute) - Instructions Diet, Activity, Other Instructions: you need appointment within a week with dr carreon follow up labs urology consult MRI to be done as outpatient finish all antibiotics if any fever or abdominal pain return to the ER Referrals: Herrera Carreon MD [Primary Care Provider] - 1 Week Nikos York MD [Staff Physician] - Heber Au DO [Staff Physician] - - Home Medications Comprehensive Discharge Medication List: Ambulatory Orders Acetaminophen [Tylenol .Regular Strength -] 650 mg PO Q6H PRN tablet 03/28/17 Pantoprazole Sodium [Protonix -] 40 mg PO BID #60 tablet.ec 03/28/17 Sucralfate Oral Suspension [Carafate Oral Suspension -] 1 gm PO QID #300 ml 03/28/17 Acetaminophen 650 mg PO PRN #30 tablet 12/24/19 Miconazole Nitrate [Monistat-7 -] 1 applic VG HS #1 tube 12/24/19 Nicotine Patch [Nicoderm Patch -] 14 mg TD DAILY patch 12/24/19 levoFLOXacin [Levaquin -] 500 mg PO DAILY@0600 #7 tablet 12/24/19
== END 2019-12-24 14:42 | disposition left against medical advice (07) | DRG 463 ==
LOC: JER 14:38 → JERBED 16:02 → J5S 12-23 13:56
PROVIDERS: ADMIT Family Medicine; ATTEND Family Medicine
DX: N13.6 Pyonephrosis (principal); E66.9 Obesity, unspecified; Z68.39 Body mass index [BMI] 39.0-39.9, adult; F17.210 Nicotine dependence, cigarettes, uncomplicated; R19.00 Intra-abdominal and pelvic swelling, mass and lump, unspecified site; B96.1 Klebsiella pneumoniae [K. pneumoniae] as the cause of diseases classified elsewhere; R78.81 Bacteremia
CPT/HCPCS: 36415; 80053; 85025; 99285-25; U0003